=== PATIENT | male | born 1940 | race Caucasian/White ===

== ENCOUNTER 2022-12-13 08:01 | Outpatient (AMB) | payer MEDICARE, SELFPAY ==
--- NOTE | 2022-12-13 08:03 | A.OFFVIS_ITS ---
Intake Vital Signs 12/13/22 08:06 Height 6 ft Weight 185 lb 2 oz BMI 25.1 BP 118/68 Blood Pressure Location Lt brachial Position Sitting Respiration 16 Pulse 72 Pulse Source Palpation Intake Visit Reasons: VUF-Yulcsxels-Oqqnsvfid Intake Note: Pt presents to the office for new patient evaluation of Parkinson's. He reports right hand tremors, short term memory loss that has been getting worse for about a year now. Allergies No Known Allergies Allergy (Verified 12/13/22 08:11) Medication List - Last Reconciled 12/13/22 by Char Romano MD acetaminophen (Tylenol) 325 mg PO QID PRN apixaban (Eliquis) 5 mg PO BID atorvastatin 20 mg PO DAILY diltiazem HCl ER 60 mg PO BID ferrous sulfate 110 mg PO DAILY omeprazole 20 mg PO QDAY tamsulosin 0.4 mg PO DAILY tramadol 50 mg PO BEDTIME HPI HPI Comments History of Present Illness Details 82y/o right handed male comes for manage ment of Parkinsonism . His main complaints are right hand tremors , short term memory issues, generalized slowness, fatigue etc. His noticed noticed rest tremors in his right hand about 1 year ago. He has been having a progressive difficulty with dates, names , needs reminders, frequently misplaces things, forgets conversations etc for past 2 years . He has h/o sleep apnea but not on CPAP. He has nocturia - wakes up 3-4 times a night due to prostrate issues. No abnormal behavior. He has anxiety when he forgets. He was recently in the hospital for kidney stones and sepsis related to that - he was very weak and was in rehab , had COVID and was recently discharged 3 week s ago. No change in voice , no drooling.He has trouble writing.No difficulty with dressing , showering - mild slowness. He uses a walker and is off balance and had multiple falls .He has on and off li ghtheadedness especially with position change. No hallucinations No constipation. No h/o head injury No exposure to pesticides, insecticides. He has h/o vertigo for 2 years.It resolves with vestibular rehab . [facility] Medical History (Updated 12/13/22 @ 14:49 by Char Romano MD) Parkinson's disease without dyskinesia Anxiety Adenocarcinoma, lung Surgical History (Updated 10/17/23 @ 08:46 by Char Romano MD) History of pneumonectomy Hx of thyroidectomy Hx of rotator cuff surgery History of total knee replacement (TKR) H/O lithotripsy H/O arthroscopic knee surgery History of vocal cord polypectomy Family History Mother Bladder cancer Brain tumor Sister Lung cancer Physical Exam Vital Signs: Last Vital Signs Pulse 72 12/13/22 08:06 Resp 16 12/13/22 08:06 BP 118/68 12/13/22 08:06 BMI result Body Mass Index 25.1 Const General: cooperative, healthy appearing, comfortable and no acute distress Nutritional Appearance: average body habitus Orientation/consciousness: patient oriented x3 Neuro Other: right UE intermittent rest tremors Mild decreased blink and facial expression FFM mildly decreased maria g Foot taps decreased maria g Mild cog wheel rigidity R>L Gait-with walker , mild wide based , slow. General: patient oriented x3 Orientation What is the (year) (season) (date) (day) (month)?: year, season, day and month Where are we (state) (county) (town or city) (hospital) (floor)?: state, county, town or city, hospital/clinic and floor Registration Name of 3 unrelated objects clearly and slowly, then ask patient to repeat all 3 of them. (1st repeat determines score. Make sure they can repeat all three): object 1, object 2 and object 3 Attention & Calculation (CHOOSE ONE) Spell WORLD backwards (DLROW): 5 letters Recall Ask patient to repeat the 3 items from question #3.: object 1, object 2 and object 3 Language Show patient a wristwatch & ask what it is. Repeat for pencil.: watch and pencil Ask the patient to repeat the phrase 'No ifs, ands, or buts' after you.: correct Ask the patient to 'take a piece of paper with their right hand' 'fold paper in half' 'place paper on floor': take paper in right hand, fold paper in half and place paper on floor Print the sentence 'CLOSE YOUR EYES' on a piece. If patient actually closes eyes then score.: followed written direction Give patient a blank piece of paper & ask to write a sentence. Score if it contains a noun & verb.: sentence contains subject and verb Ask patient to copy figure of intersecting pentagons exactly. Score if all 10 angles & 2 intersects are included.: all 10 angles present & 2 are intersected Score Score: 29 Assessment & Plan Assessment & Plan (1) Parkinson's disease without dyskinesia: Code(s): G20.A1 - Parkinson's disease without dyskinesia, without mention of fluctuations Plan He has home therapy now. I discussed about the diagnosis and various medication options I will hold off on medications as his symptoms are mild I will reevaluate in 4 mths and consider pharmacological treatment. ADILENE from 05/2022 c/w parkinsons. Coding Level of Care Code New Pt Level 4 (99067) Diagnoses Parkinson's disease without dyskinesia G20.A1
[2022-12-13 08:06] VITALS: BP 118/68; PULSE 72; RESP 16; BMI 25.1
--- NOTE | 2022-12-14 10:18 | MHC.OFFVIS ---
Intake Vital Signs 12/13/22 08:06 12/14/22 10:18 Height 6 ft Weight 185 lb 2 oz BMI 25.1 25.1 BP 118/68 Blood Pressure Location Lt brachial Position Sitting Respiration 16 Pulse 72 Pulse Source Palpation Intake Visit Reasons: [id number] Allergies No Known Allergies Allergy (Verified 12/13/22 08:11) Medication List - Last Reconciled 12/13/22 by Char Romano MD acetaminophen (Tylenol) 325 mg PO QID PRN apixaban (Eliquis) 5 mg PO BID atorvastatin 20 mg PO DAILY diltiazem HCl ER 60 mg PO BID ferrous sulfate 110 mg PO DAILY omeprazole 20 mg PO QDAY tamsulosin 0.4 mg PO DAILY tramadol 50 mg PO BEDTIME PFSH Medical History (Updated 12/13/22 @ 14:49 by Char Romano MD) Parkinson's disease without dyskinesia Anxiety Adenocarcinoma, lung Surgical History (Updated 12/13/22 @ 08:46 by Char Romano MD) History of pneumonectomy Hx of thyroidectomy Hx of rotator cuff surgery History of total knee replacement (TKR) H/O lithotripsy H/O arthroscopic knee surgery History of vocal cord polypectomy Family History Mother Bladder cancer Brain tumor Sister Lung cancer Physical Exam Vital Signs: Last Vital Signs Pulse 72 12/13/22 08:06 Resp 16 12/13/22 08:06 BP 118/68 12/13/22 08:06 BMI result Body Mass Index 25.1 Assessment & Plan Assessment & Plan (1) Parkinson's disease without dyskinesia: Code(s): G20.A1 - Parkinson's disease without dyskinesia, without mention of fluctuations Quality Reporting (2019) Adult ([facility] 138/2/) Body Mass Index: 25.1 Coding Diagnoses Parkinson's disease without dyskinesia G20.A1
== END 2022-12-13 08:58 | disposition home or self-care (01) ==
PROVIDERS: PCP Internal Medicine; Visit Provider Psychiatry & Neurology Neurology
DX: G20.A1 Parkinson's disease without dyskinesia, without mention of fluctuations (principal)
CPT/HCPCS: 99204

== ENCOUNTER → 2022-12-13 08:01 | Outpatient (BNVA) | payer OTHER, MEDICARE, SELFPAY | PROVIDERS: PCP Internal Medicine; Visit Provider Psychiatry & Neurology Neurology ==

== ENCOUNTER 2023-04-04 12:27 | Outpatient (AMB) | payer OTHER, SELFPAY ==
--- NOTE | 2023-04-04 12:31 | A.OFFVIS_ITS ---
Intake Vital Signs 04/04/23 12:33 Height 6 ft BP 104/70 Blood Pressure Location Lt brachial Position Sitting Respiration 16 Pulse 72 Pulse Source Palpation Intake Visit Reasons: Follow up- LVM Intake Note: Pt presents for a 4 month follow up for Parkinson's without dyskinesia. Pt c/o increased tremors and falls. 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: No Allergies No Known Allergies Allergy (Verified 04/04/23 12:32) Medication List - Last Reconciled 04/04/23 by Char Romano MD acetaminophen (Tylenol) 325 mg PO QID PRN apixaban (Eliquis) 5 mg PO BID atorvastatin 20 mg PO DAILY diltiazem HCl ER 60 mg PO BID ferrous sulfate 110 mg PO DAILY finasteride 1 mg PO DAILY omeprazole 20 mg PO QDAY tamsulosin 0.4 mg PO DAILY tramadol 50 mg PO BEDTIME HPI HPI Comments History of Present Illness Details 82y/o right handed male comes for follow up of Parkinsonism .Since his last visit he has been to rehab for UTI and falls 3 times.He is very tired and he has frequent awakenings at night due to nocturia His noticed increase in his tremors and short term memory issues.He reports lightheadedness He has been having a progressive difficulty with dates, names , needs reminders, frequently misplaces things, forgets conversations etc for past 2 years . He has h/o sleep apnea but not on CPAP. He has nocturia - wakes up 3-4 times a night due to prostrate issues. No abnormal behavior. He has anxiety when he forgets. He was recently in the hospital for kidney stones and sepsis related to that - he was very weak and was in rehab , had COVID and was recently discharged 3 weeks ago. No change in voice , no drooling.He has trouble writing.No difficulty with dressing , showering - mild slowness. He uses a walker and is off balance and had multiple falls .He has on and off lightheadedness especially with position change. No hallucinations No constipation. No h/o head injury No exposure to pesticides, insecticides. He has h/o vertigo for 2 years.It resolves with vestibular rehab . [facility] LICENSE OF [facility] Medical History Parkinson's disease without dyskinesia Anxiety Adenocarcinoma, lung Surgical History History of pneumonectomy Hx of thyroidectomy Hx of rotator cuff surgery History of total knee replacement (TKR) H/O lithotripsy H/O arthroscopic knee surgery History of vocal cord polypectomy Family History Mother Bladder cancer Brain tumor Sister Lung cancer Physical Exam Vital Signs: Last Vital Signs Pulse 72 04/04/23 12:33 Resp 16 04/04/23 12:33 BP 104/70 04/04/23 12:33 Const General: cooperative, healthy appearing, comfortable and no acute distress Nutritional Appearance: average body habitus Orientation/consciousness: patient oriented x3 Neuro Other: right UE intermittent rest tremors Mild decreased blink and facial expression FFM mildly decreased maria g Foot taps decreased maria g Mild cog wheel rigidity R>L Gait-with walker , mild wide based , slow. General: patient oriented x3 Assessment & Plan Assessment & Plan (1) Parkinson's disease without dyskinesia: Code(s): G20.A1 - Parkinson's disease without dyskinesia, without mention of fluctuations Plan He has home therapy now. I will trial him on carbidopa/levodopa 25/100 - 1/2 tab tid for 4 weeks then 1tabs tid ADILENE from 05/2022 c/w parkinsons. Increase fluid intake Medications: New carbidopa-levodopa 25-100 mg 1/2 tab tid for 4 weeks then 1 tab tid orally 3 times a day; 90 tabs 1RF Coding Level of Care Code Est Pt Level 4 (86310) Diagnoses Parkinson's disease without dyskinesia G20.A1
[2023-04-04 12:33] VITALS: BP 104/70; PULSE 72; RESP 16
== END 2023-04-04 12:59 | disposition home or self-care (01) ==
PROVIDERS: PCP Internal Medicine; Visit Provider Psychiatry & Neurology Neurology
DX: G20.A1 Parkinson's disease without dyskinesia, without mention of fluctuations (principal)
CPT/HCPCS: 99214

== ENCOUNTER → 2023-04-04 12:27 | Outpatient (BNVA) | payer OTHER, MEDICARE, SELFPAY | PROVIDERS: PCP Internal Medicine; Visit Provider Psychiatry & Neurology Neurology ==

== ENCOUNTER 2023-05-23 10:19 | Outpatient (AMB) | payer OTHER, SELFPAY ==
--- NOTE | 2023-05-23 10:39 | A.OFFVIS_ITS ---
Vital Signs 05/23/23 10:50 Height 6 ft Weight 199 lb BMI 27.0 BP 112/74 Blood Pressure Location Lt brachial Position Sitting Respiration 16 Pulse 68 Pulse Source Pulse Oximeter Pulse Oximetry (%) 98 Oxygen Delivery Method Room Air Intake Visit Reasons: 6 Wks f/u - LVM w/adress Intake Note: Patient presents for 6 month F/U. Body is more rigid. Taking 1/2 tablet of Carbidopa/Levodopa at night due to getting nausea and dizziness when taking 3 1/2 tablets a day. Allergies No Known Allergies Allergy (Verified 05/23/23 10:49) HPI Comments Details: 82 y/o right handed male comes for follow up of Parkinsonism. Pt's reports that he tried Sinemet 0.5 mg TID. However, Sinemet makes him very tired and light headedness, and decreased his appetite. He uses a walker and is off balance and had multiple falls. He has on and off lightheadedness especially with position change. No hallucinations No constipation. He uses walker, and does home physical therapy. No difficulty with dressing , showering - mild slowness. He has been having a progressive difficulty with dates, names , needs reminders, frequently misplaces things, forgets conversations etc for past 2 years. He has h/o sleep apnea but not on CPAP. He has nocturia - wakes up 3-4 times a night due to prostrate issues. He does not want to repeat sleep study or using CPAP. No abnormal behavior. He has anxiety when he forgets. He has h/o vertigo for 2 years. It resolves with vestibular rehab . [facility] Medical History Parkinson's disease without dyskinesia Anxiety Adenocarcinoma, lung Surgical History History of pneumonectomy Hx of thyroidectomy Hx of rotator cuff surgery History of total knee replacement (TKR) H/O lithotripsy H/O arthroscopic knee surgery History of vocal cord polypectomy Family History Mother Bladder cancer Brain tumor Sister Lung cancer Social History (Updated 05/23/23 @ 10:50 by Taylor Hoyt CMA) Household Members: Spouse Housing: House Alcohol intake: current Comment: Ocassionally Patient Tobacco Use Status: Former Tobacco user Tobacco use type: Cigarette Years Smoked: 30 Review of Systems Const All systems reviewed & are unremarkable except as noted in HPI and below Physical Exam Vital Signs: Last Vital Signs Pulse 68 05/23/23 10:50 Resp 16 05/23/23 10:50 BP 112/74 05/23/23 10:50 Pulse Ox 98 05/23/23 10:50 Oxygen Delivery Method Room Air 05/23/23 10:50 BMI result Body Mass Index 27.0 Const General: cooperative, healthy appearing, comfortable and no acute distress Nutritional Appearance: average body habitus Orientation/consciousness: patient oriented x3 Neuro Other: right UE intermittent rest tremors Mild decreased blink and facial expression FFM mildly decreased maria g Foot taps decreased maria g Mild cog wheel rigidity R>L Gait-with walker , mild wide based , slow. General: patient oriented x3 Assessment & Plan Assessment & Plan (1) Parkinson's disease without dyskinesia: Code(s): G20.A1 - Parkinson's disease without dyskinesia, without mention of fluctuations Category: Medical Plan Advised patient to start rasagiline 0.5 mg daily. Discontinue Sinemet 0.5 tab TID, pt not tolerated. Advised patient to increase fluid intake. Medications: New rasagiline 0.5 mg PO DAILY 30 tabs 1RF 30 days Discontinued carbidopa-levodopa 25-100 mg Discontinued Reason: Doctor's Order 1/2 tab tid for 4 weeks then 1 tab tid orally 3 times a day; 90 tabs 1RF Coding Level of Care Code Est Pt Level 3 (12505) Diagnoses Parkinson's disease without dyskinesia G20.A1
[2023-05-23 10:50] VITALS: BP 112/74; PULSE 68; RESP 16; O2SAT 98; BMI 27.0
== END 2023-05-23 11:11 | disposition home or self-care (01) ==
PROVIDERS: PCP Internal Medicine; Visit Provider Nurse Practitioner Family
DX: G20.A1 Parkinson's disease without dyskinesia, without mention of fluctuations (principal)
CPT/HCPCS: 99213

== ENCOUNTER → 2023-05-23 10:19 | Outpatient (BNVA) | payer OTHER, MEDICARE, SELFPAY | PROVIDERS: PCP Internal Medicine; Visit Provider Nurse Practitioner Family ==

== ENCOUNTER 2023-09-21 12:04 | Outpatient (AMB) | payer OTHER, SELFPAY ==
--- NOTE | 2023-09-21 12:04 | A.OFFVIS_ITS ---
Intake Visit Reasons: Follow Up Intake Note: Pt presents for 4 month via telehealth for Parkinson's. 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 He is currently on rytary 23/75 1 cap tid He is tolerating is better and feels it is helping. With Sinemet made him very tired and light headedness, No falls No hallucinations No constipation. He uses walker, No difficulty with dressing , showering - mild slowness. He has been having a progressive difficulty with dates, names , needs reminders, frequently misplaces things, forgets conversations etc for past 2 years. He has h/o sleep apnea but not on CPAP. He has nocturia - wakes up 3-4 times a night due to prostrate issues. He does not want to repeat sleep study or using CPAP. No abnormal behavior. He has anxiety when he forgets. He has h/o vertigo for 2 years. It resolves with vestibular rehab . [facility] Medical History Parkinson's disease without dyskinesia Anxiety Adenocarcinoma, lung Surgical History History of pneumonectomy Hx of thyroidectomy Hx of rotator cuff surgery History of total knee replacement (TKR) H/O lithotripsy H/O arthroscopic knee surgery History of vocal cord polypectomy Family History Mother Bladder cancer Brain tumor Sister Lung cancer Social History Household Members: Spouse Housing: House Alcohol intake: current Comment: Ocassionally Patient Tobacco Use Status: Former Tobacco user Tobacco use type: Cigarette Years Smoked: 30 Physical Exam Const General: cooperative and comfortable Telehealth Telehealth Telehealth Platform: Telephone Location of provider rendering services: practice address Location of patient: address on file Patient Identification confirmed using: Name, : Yes Telehealth method: voice only Patient verbally consented to treatment: Yes Patient verbally consented to billing insurance company: Yes Patient informed of any privacy concerns related to visit: Yes Minutes spent on Phone/Video with Pt.: 16 Assessment & Plan Assessment & Plan (1) Parkinson's disease without dyskinesia: Code(s): G20.A1 - Parkinson's disease without dyskinesia, without mention of fluctuations Category: Medical Plan Increase rytary 2 tabs tid PT for gait training . Advised patient to increase fluid intake. Medications: Changed From carbidopa-levodopa 23.75-95 mg ER (Rytary) 1 cap PO TID 90 caps 6RF To carbidopa-levodopa 23.75-95 mg ER (Rytary) 2 caps PO TID 180 caps 6RF Coding Level of Care Code Tele Est Pt Level 4 (45822) Diagnoses Parkinson's disease without dyskinesia G20.A1
== END 2023-09-21 13:26 | disposition home or self-care (01) ==
LOC: HO.HSMS 12:04
PROVIDERS: PCP Internal Medicine; Visit Provider Psychiatry & Neurology Neurology
DX: G20.A1 Parkinson's disease without dyskinesia, without mention of fluctuations (principal)
CPT/HCPCS: 99442

== ENCOUNTER → 2023-09-21 12:04 | Outpatient (BNVA) | payer OTHER, SELFPAY | PROVIDERS: PCP Internal Medicine; Visit Provider Psychiatry & Neurology Neurology ==

== ENCOUNTER 2023-10-18 13:32 | Outpatient (AMB) | payer OTHER, MEDICARE, SELFPAY ==
--- NOTE | 2023-10-18 13:50 | MHC.OFFVIS ---
Vital Signs 10/18/23 13:51 Height 6 ft Weight 199 lb BMI 27.0 BP 112/68 Blood Pressure Location Rt brachial Position Sitting Respiration 16 Pulse 64 Pulse Source Palpation Intake Visit Reasons: Follow up - LVM w/add Intake Note: Pt presents for 1 month follow up for Parkinson's. 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 His is concerned about his memory.His memory is worse when he is tired and sleepy. He is currently on rytary 23/75 2 cap tid He is tolerating is better and feels it is helping. With Sinemet made him very tired and light headedness, No falls No hallucinations No constipation. He uses walker, No difficulty with dressing , showering - mild slowness. He has been having a progressive difficulty with dates, names , needs reminders, frequently misplaces things, forgets conversations etc for past 2 years. He has h/o sleep apnea but not on CPAP. He has nocturia - wakes up 3-4 times a night due to prostrate issues. He does not want to repeat sleep study or using CPAP. No abnormal behavior. He has anxiety when he forgets. He has h/o vertigo for 2 years. It resolves with vestibular rehab . [facility] Medical History Parkinson's disease without dyskinesia Anxiety Adenocarcinoma, lung Surgical History History of pneumonectomy Hx of thyroidectomy Hx of rotator cuff surgery History of total knee replacement (TKR) H/O lithotripsy H/O arthroscopic knee surgery History of vocal cord polypectomy Family History Mother Bladder cancer Brain tumor Sister Lung cancer Social History Household Members: Spouse Housing: House Alcohol intake: current Comment: Ocassionally Patient Tobacco Use Status: Former Tobacco user Tobacco use type: Cigarette Years Smoked: 30 Physical Exam Vital Signs: Last Vital Signs Pulse 64 10/18/23 13:51 Resp 16 10/18/23 13:51 BP 112/68 10/18/23 13:51 BMI result Body Mass Index 27.0 Const General: cooperative, healthy appearing, comfortable and no acute distress Nutritional Appearance: average body habitus Orientation/consciousness: patient oriented x3 Neuro Other: right UE intermittent rest tremors Mild decreased blink and facial expression FFM mildly decreased maria g Foot taps decreased maria g Mild cog wheel rigidity R>L Gait-with walker , mild wide based , slow. General: patient oriented x3 Assessment & Plan Assessment & Plan (1) Parkinson's disease without dyskinesia: Code(s): G20.A1 - Parkinson's disease without dyskinesia, without mention of fluctuations Category: Medical Plan Continue rytary 3 tabs tid PT for gait training . Advised patient to increase fluid intake. Advised to increase cognitive activity . Orders: Orders PT Evaluation and Treatment Today G20.A1 - Parkinson's disease without dyskinesia, without mention of fluctuations Medications: Changed From carbidopa-levodopa 23.75-95 mg ER (Rytary) 2 caps PO TID 180 caps 6RF To carbidopa-levodopa 23.75-95 mg ER (Rytary) 3 caps PO TID 270 caps 6RF Coding Level of Care Code Est Pt Level 4 (67199) Complex EM visit Add On G2211 Diagnoses Parkinson's disease without dyskinesia G20.A1
[2023-10-18 13:51] VITALS: BP 112/68; PULSE 64; RESP 16; BMI 27.0
== END 2023-10-18 14:33 | disposition home or self-care (01) ==
PROVIDERS: PCP Internal Medicine; Visit Provider Psychiatry & Neurology Neurology
DX: G20.A1 Parkinson's disease without dyskinesia, without mention of fluctuations (principal)
CPT/HCPCS: 99214; G2211

== ENCOUNTER → 2023-10-18 13:32 | Outpatient (BNVA) | payer OTHER, MEDICARE, SELFPAY | PROVIDERS: PCP Internal Medicine; Visit Provider Psychiatry & Neurology Neurology ==

== ENCOUNTER 2024-05-01 13:44 | Outpatient (AMB) | payer OTHER, MEDICARE, SELFPAY ==
--- NOTE | 2024-05-01 13:45 | A.OFFVIS_ITS ---
Vital Signs 05/01/24 13:46 Height 6 ft Weight 215 lb BMI 29.2 BP 130/78 Blood Pressure Location Rt brachial Position Sitting Pulse 66 Pulse Source Pulse Oximeter Pulse Oximetry (%) 96 Oxygen Delivery Method Room Air Intake Visit Reasons: Follow up Intake Note: Pt presents to the office today for a follow up for Parkinson's Disease. Pt state he did not want to do PT. Allergies No Known Allergies Allergy (Verified 05/01/24 13:48) HPI Comments Details: Patient was informed and verbally consented to the use of an ambient scribe for clinic note documentation during this visit. The patient is an 83-year-old male presenting for follow-up on Parkinson's Dis ease management. The condition was last reviewed in September, with medication adherence to Rytary at the prescribed dosage. He denies participation in referrals for physical therapy but maintains a walking regimen of over half a mile twice daily. No reports of strengthening exercises or balance activities have been made. He has not experienced falls and uses a walker primarily for extended walks. No hallucinations are present, though unusual dreams have been acknowledged. Memory testing showed adequate performance, though patient-reported issues with memory retention remain. Previous attempts to use a CPAP device for sleep apnea were met with discomfort, leading to its discontinuation. The patient's independence in activities of daily living is affirmed, with suitable home modifications aiding bathing routines. Bowel habits are predominantly regular, albeit with occasional constipation and episodes of loose stools No difficulty with dressing , showering - mild slowness. He has h/o sleep apnea but not on CPAP. He has nocturia - wakes up 3-4 times a night due to prostrate issues. He does not want to repeat sleep study or using CPAP. No abnormal behavior. He has anxiety when he forgets. He has h/o vertigo for 2 years. It resolves with vestibular rehab . [facility] Medical History Parkinson's disease without dyskinesia Anxiety Adenocarcinoma, lung Surgical History History of pneumonectomy Hx of thyroidectomy Hx of rotator cuff surgery History of total knee replacement (TKR) H/O lithotripsy H/O arthroscopic knee surgery History of vocal cord polypectomy Family History Mother Bladder cancer Brain tumor Sister Lung cancer Social History Household Members: Spouse Housing: House Alcohol intake: current Comment: Ocassionally Patient Tobacco Use Status: Former Tobacco user Tobacco use type: Cigarette Years Smoked: 30 Review of Systems Const Details: - Neurological: Reports memory impairment; no hallucinations. - Gastrointestinal: Reports regular bowel movements; occasional constipation, and loose stools. - General: Denies falls. - Musculoskeletal: Denies participating in physical therapy. - Sleep: Reports strange dreams; denies significant sleep disruption. Physical Exam Vital Signs: Last Vital Signs Pulse 66 05/01/24 13:46 BP 130/78 05/01/24 13:46 Pulse Ox 96 05/01/24 13:46 Oxygen Delivery Method Room Air 05/01/24 13:46 BMI result Body Mass Index 29.2 Const General: cooperative, healthy appearing, comfortable and no acute distress Nutritional Appearance: average body habitus Orientation/consciousness: patient oriented x3 Neuro Other: right UE intermittent rest tremors Mild decreased blink and facial expression FFM mildly decreased maria g Foot taps decreased maria g Mild cog wheel rigidity R>L Gait-with walker , mild wide based , slow. General: patient oriented x3 Orientation What is the (year) (season) (date) (day) (month)?: year, season, date, day and month Where are we (state) (county) (town or city) (hospital) (floor)?: state, county, town or city, hospital/clinic and floor Registration Name of 3 unrelated objects clearly and slowly, then ask patient to repeat all 3 of them. (1st repeat determines score. Make sure they can repeat all three): object 1, object 2 and object 3 Attention & Calculation (CHOOSE ONE) Spell WORLD backwards (DLROW): 5 letters Recall Ask patient to repeat the 3 items from question #3.: object 1, object 2 and object 3 Language Show patient a wristwatch & ask what it is. Repeat for pencil.: watch and pencil Ask the patient to repeat the phrase 'No ifs, ands, or buts' after you.: correct Ask the patient to 'take a piece of paper with their right hand' 'fold paper in half' 'place paper on floor': take paper in right hand, fold paper in half and place paper on floor Print the sentence 'CLOSE YOUR EYES' on a piece. If patient actually closes eyes then score.: followed written direction Give patient a blank piece of paper & ask to write a sentence. Score if it contains a noun & verb.: sentence contains subject and verb Ask patient to copy figure of intersecting pentagons exactly. Score if all 10 angles & 2 intersects are included.: all 10 angles present & 2 are intersected Score Score: 30 Assessment & Plan Assessment & Plan (1) Parkinson's disease without dyskinesia: Code(s): G20.A1 - Parkinson's disease without dyskinesia, without mention of fluctuations Category: Medical Qualifiers: Fluctuating manifestations: without fluctuating manifestations Qualified Code(s): G20.A1 - Parkinson's disease without dyskinesia, without mention of fluctuations Plan Continue rytary 3 tabs tid Advised patient to increase fluid intake. Advised to increase cognitive activity . - Begin physical therapy for strengthening exercises and balance enhancement. - Engage in daily cognitive activities such as puzzles and card games to boost mental function. - Monitor bowel habits; incorporate dietary changes if constipation persists. - Schedule follow-up in six months or sooner if symptoms change. Orders: Orders PT Evaluation and Treatment Today G20.A1 - Parkinson's disease without dyskinesia, without mention of fluctuations Coding Level of Care Code Est Pt Level 4 (24270) Complex EM visit Add On G2211 Diagnoses Parkinson's disease without dyskinesia or fluctuating manifestations G20.A1 Fluctuating manifestations: without fluctuating manifestations
[2024-05-01 13:46] VITALS: BP 130/78; PULSE 66; O2SAT 96; BMI 29.2
--- OUTSIDE RECORDS SUMMARY | 2024-05-01 16:21 | XMS_ITS | Clinical Summary ---
Author Organization [address] [place] [address] Address [address] [place] [address] Phone Care Team Providers Care Material Cutter Name Role Phone Orlando Maldonado MD Primary Care Provider [phone] Allergies No known active allergies Medications apixaban (ELIQUIS) 5 mg tablet Take by mouth 2 times daily. Active atorvastatin (LIPITOR) 20 mg tablet Take 20 mg by mouth daily. Active carbidopa-levod opa (Rytary) 23.75-95 mg per XR capsule Take by mouth. Active cholecalciferol (VITAMIN D-3) 125 mcg (5,000 unit) capsule Take by mouth daily. Active dilTIAZem XR (DILACOR XR) 240 mg 24 hr capsule Take 1 Capsule by mouth daily. Active ferrous sulfate 325 mg (65 mg elemental iron) tablet Take 1 Tablet by mouth daily. Active fluticasone propionate (FLONASE) 50 mcg/actuation nasal spray 2 Sprays by Each Nare route daily. Active metoprolol tartrate (LOPRESSOR) 50 mg tablet Take 1 Tablet by mouth 2 times daily. 12/14/2022 Active multivitamin (MULTIPLE VITAMINS ORAL) Take by mouth daily. Active omeprazole (PRILOSEC) 20 mg tablet,delayed release (DR/EC) Take by mouth daily. Active tamsulosin (FLOMAX) 0.4 mg 24 hr capsule Take 1 Capsule by mouth daily. Active traMADoL (ULTRAM) 50 mg tablet Take 1 Tablet by mouth as needed. 10/13/2021 Active Active Problems Problem Noted Date Diagnosed Date Acute pyelonephritis 12/13/2022 Weakness 12/13/2022 Atrial fibrillation 05/07/2021 Overview (01/12/2024): Last Assessment & Plan: Patient has history of atrial fibrillation and continues on rate control strategy with diltiazem and metoprolol. Patient's blood pressure today is well-controlled with a reading of 130/66. He continues on diltiazem 240 mg once a day. He continues on Eliquis for anticoagulation given his [id number] score of 2 representing a 2.2% risk for thromboembolism. I will make no changes to his medical therapies today. His dose of Eliquis is appropriate despite his advanced age due to his weight and and normal creatinine. GERD (gastroesophageal reflux disease) Osteoarthritis 05/07/2021 Encounters Date Type Department Care Team Description 03/01/2024 Telephone [facility] [address] [place] [address] Jordin Maurice MD Scheduling Recall from Last 3 Months Medical History Medical History Date Comments Hyperlipidemia DX:Hyperlipidemi a Lung cancer (CMS/HCC) 01/2019 DX:Lung ca ncer (HCC) Thyroid cancer (CMS/HCC) 2020 DX:Thyr oid cancer (HCC) Orthostatic hypotension DX:Ortho static hypotension Fall DX:Fall Severe anemia DX:Severe anemia Family History Medical History Relation Name Comments Alcohol abuse Father Other: Bladder cancer Mother Relation Name Status Comments Father Mother Social History Tobacco Use Types Packs/Day Years Used Date Smoking Tobacco: Former Smokeless Tobacco: Never Alcohol Use Standard Drinks/Week Comments Yes 1 (1 standard drink = 0.6 oz pur e alcohol) Sex and Gender Information Value Date Recorded Sex Assigned at Not on file Legal Sex Male 10:23 AM EST Gender Identity Not on file Sexual Orientation Not on file Obstetrics History Last Filed Vital Signs Vital Sign Reading Time Taken Comments Blood Pressure 135/73 12/20/2023 2:23 PM EDT Sit ting L Arm Pulse 74 12/20/2023 2:23 PM EDT Temperature - - Respiratory Rate - - Oxygen Saturation - - Inhaled Oxygen Concentration - - Weight 95.7 kg (211 lb) 12/20/2023 2:23 PM EDT Height 182.9 cm (6') 12/20/2023 2:23 PM EDT Body Mass Index 28.62 12/20/2023 2:23 PM EDT Plan of Treatment Upcoming Encounters Date Type Department Care Team (Late st Contact Info) Description 07/16/2024 2:00 PM EDT Office Visit [facility] [address] [place] [address] Jordin Maurice MD [address] [place] [address] [address] [place] [address] Health Maintenance Due Date Last Done Comments DTaP,Tdap,and Td Vaccines (1 - Tdap) 1959 Cholesterol Screening (Lipid Panel) 02/03/2022 Depression Screening 02/03/2022 Falls Risk Assessment 02/03/2022 Medicare Annual Wellness Visit 02/03/2022 Social Influencers of Health Screening 02/03/2022 Hypertension/CHF/CAD Annual BMP Blood Test 01/18/2024 Zoster Vaccines Completed 12/21/2021, 10/09/2021 Pneumococcal Vaccine: 50+ Years Completed 12/22/2021, 12/21/2021 RSV Immunization Patients 60+ Years Old Completed 01/02/2023 COVID-19 Vaccine Completed 10/29/2023, 12/2021, 12/18/2020, Additional history exists Influenza Vaccine Completed 10/29/2023, , 12/14/2021, Additional history exists HIB Vaccines Aged Out No longer eligi ble based on patient's age to complete this topic HPV Vaccines Aged Out No longer eligi ble based on patient's age to complete this topic Hepatitis A Vaccines Aged Out No long er eligible based on patient's age to complete this topic Hepatitis B Vaccines Aged Out No long er eligible based on patient's age to complete this topic IPV Vaccines Aged Out No longer eligi ble based on patient's age to complete this topic MMR Vaccines Aged Out No longer eligi ble based on patient's age to complete this topic Meningococcal ACWY Vaccine Aged Out N o longer eligible based on patient's age to complete this topic Meningococcal B Vacine Aged Out No lo nger eligible based on patient's age to complete this topic RSV Immunization Patients Under 20 months Aged Out No longer eligible based on patient's age to complete this topic Varicella Vaccines Aged Out No longer eligible based on patient's age to complete this topic Insurance [employer] Advance Directives Documents on File Type Date Recorded Patient Web Merchant Expl [facility] Health Care Decision (hx) 03/16/2023 NISHI ADAMS DIRECTIVE Care Teams Material Cutter Relationship Specialty Start Date End Date Orlando Maldonado MD PCP - General Internal Medicine 08/14/18
--- OUTSIDE RECORDS SUMMARY | 2024-05-01 16:22 | XMS_ITS ---
Author Organization [facility] Address Unknown Allergies, Adverse Reactions, Alerts Substance Reaction Status Noted Date Resolved Date GLP-1 receptor agonists active 12/24/2022 Problems Problem Status Start Date End Date MALIGNANT NEOPLASM OF UPPER LOBE, LEFT BRONCHUS OR LUNG (Primary) (C34.12 - ICD-10-CM) ACTIVE 03/14/2023 MALIGNANT NEOPLASM OF UNSPEC IFIED PART OF UNSPECIFIED BRONCHUS OR LUNG (Primary) (C34.90 - ICD-10-CM) RESOLVED 12/24/2022 03/13/2023 MALIGNANT NEOPLASM OF UNSPEC IFIED PART OF UNSPECIFIED BRONCHUS OR LUNG (C34.90 - ICD-10-CM) ACTIVE 03/14/2023 URINARY TRACT INFECTION, SIT E NOT SPECIFIED (N39.0 - ICD-10-CM) RESOLVED 12/24/2022 03/13/2023 ACQUIRED ABSENCE OF LUNG [PART OF] (Z90.2 - ICD-10-CM) ACTIVE 03/14/2023 MALIGNANT NEOPLASM OF THYROID GLAND (C73 - ICD-10-CM) RESOLVED 12/24/2022 03/13/2023 PARKINSONISM, UNSPECIFIED (G20.C - ICD-10-CM) ACTIVE 03/14/2023 PAIN IN OTHER SPECIFIED JOINT (M25.59 - ICD-10-CM) RES OLVED 12/25/2022 03/14/2023 UNSPECIFIED ATRIAL FIBRILLATION (I48.91 - ICD-10-CM) A CTIVE 03/14/2023 UNSPECIFIED ATRIAL FIBRILLATION (I48.91 - ICD-10-CM) R ESOLVED 12/24/2022 03/13/2023 MUSCLE WEAKNESS (GENERALIZED) (M62.81 - ICD-10-CM) ACT KATERYNA 03/14/2023 MUSCLE WEAKNESS (GENERALIZED) (M62.81 - ICD-10-CM) RES OLVED 12/22/2022 03/13/2023 DIFFICULTY IN WALKING, NOT E LSEWHERE CLASSIFIED (R26.2 - ICD-10-CM) ACTIVE 03/14/2023 DIFFICULTY IN WALKING, NOT E LSEWHERE CLASSIFIED (R26.2 - ICD-10-CM) RESOLVED 12/22/2022 03/13/2023 UNSTEADINESS ON FEET (R26.81 - ICD-10-CM) RESOLVED 12/22/2022 03/13/2023 NEED FOR ASSISTANCE WITH PER JESSICA CARE (Z74.1 - ICD-10-CM) RESOLVED 12/22/2022 03/13/2023 UNSTEADINESS ON FEET (R26.81 - ICD-10-CM) ACTIVE 03/20/2023 OTHER SYMPTOMS AND SIGNS INV OLVING COGNITIVE FUNCTIONS AND AWARENESS (R41.89 - ICD-10-CM) ACTIVE 03/20/2023 NEED FOR ASSISTANCE WITH PER JESSICA CARE (Z74.1 - ICD-10-CM) ACTIVE 03/20/2023 BENIGN PROSTATIC HYPERPLASIA WITHOUT LOWER URINARY TRACT SYMPTOMS (N40.0 - ICD-10-CM) ACTIVE 03/14/2023 IRON DEFICIENCY ANEMIA, UNSP ECIFIED (D50.9 - ICD-10-CM) ACTIVE 03/14/2023 URINARY TRACT INFECTION, SIT E NOT SPECIFIED (N39.0 - ICD-10-CM) ACTIVE 03/14/2023 WEAKNESS (R53.1 - ICD-10-CM) ACTIVE 03/14/2023 PAROXYSMAL ATRIAL FIBRILLATION (I48.0 - ICD-10-CM) ACT KATERYNA 03/14/2023 HYPERLIPIDEMIA, UNSPECIFIED (E78.5 - ICD-10-CM) ACTIVE 03/14/2023 GASTRO-ESOPHAGEAL REFLUX DIS EASE WITHOUT ESOPHAGITIS (K21.9 - ICD-10-CM) ACTIVE 03/14/2023 ESSENTIAL (PRIMARY) HYPERTENSION (I10 - ICD-10-CM) ACT KATERYNA 03/14/2023 ACUTE CYSTITIS WITHOUT HEMATURIA (N30.00 - ICD-10-CM) RESOLVED 12/24/2022 03/13/2023 OTHER THROMBOPHILIA (D68.69 - ICD-10-CM) RESOLVED 12/24/2022 03/13/2023 ORTHOSTATIC HYPOTENSION (I95.1 - ICD-10-CM) RESOLVED 12/24/2022 03/13/2023 ANEMIA DUE TO OTHER DISORDER S OF GLUTATHIONE METABOLISM (D55.1 - ICD-10-CM) RESOLVED 12/24/2022 BENIGN PROSTATIC HYPERPLASIA WITH LOWER URINARY TRACT SYMPTOMS (N40.1 - ICD-10-CM) RESOLVED 12/24/2022 03/13/2023 WEAKNESS (R53.1 - ICD-10-CM) RESOLVED 12/24/2022 03/13/2023 HYPERLIPIDEMIA, UNSPECIFIED (E78.5 - ICD-10-CM) RESOLV ED 12/24/2022 03/13/2023 Encounters Encounter Performer Performer Role Encounter Diagnoses Location Date Discharge - Discharged to home or self care - Home (Agency Unknown) - Private home/apt. with home health services [facility] 12/24/2022 12:57 pm EDT - 01/17/2023 12:55 pm EST Discharge - Discharged to home or self care - [facility] - Private home/apt. with home health services [facility] 03/14/2023 06:56 pm EST - 03/31/2023 01:25 pm EST Immunizations Vaccine Date Influenza 11/29/2022 12:00 am EDT TB 1 Step [place]oux (PPD) 12/25/2022 01:00 am EDT TB 2 Step [place]oux Skin Test 01/02/2023 1 0:00 pm EST SARS-COV-2 (COVID-19) 04/27/2020 12:00 a m EST SARS-COV-2 (COVID-19) 03/30/2020 12:00 a m EST SARS-COV-2 (COVID-19 BOOSTER) 10/07/2021 12:00 am EDT SARS-COV-2 (COVID-19 BOOSTER) 12/18/2020 12:00 am EDT Social History
--- OUTSIDE RECORDS SUMMARY | 2024-05-01 16:22 | XMS_ITS | Clinical Summary ---
Author Organization [facility] Address [address] [place] [address] Care Team Providers Care Tsa Screener Name Role Phone Orlando Maldonado MD Primary Care Provider [phone] Allergies No known active allergies Medications Medication Sig Dispensed Refills Start Date End Date Status OMEPRAZOLE PO Take by mouth. 0 Active AMLODIPINE BESYLATE PO Take by mouth. 0 Active metoprolol tartrate (LOPRESSOR) 50 MG tablet Take by mouth 2 (two) times a day. 0 Active apixaban (ELIQUIS) 5 MG TABS tablet Take by mouth every 12 (twelve) hours. 0 Active gabapentin (NEURONTIN) 300 MG capsule Take 300 mg by mouth 3 (three) times a day. 0 Active fluticasone (FLONASE) 50 MCG/ACT nasal spray spray/apply 1 spray in each nostril daily. 0 Active atorvastatin (LIPITOR) tablet 10 mg Take 10 mg by mouth every evening. 0 Active dilTIAZem HCl Coated Beads (DILTIAZEM CD PO) Take by mouth. 0 Active Active Problems No known active problems Family History Medical History Relation Name Comments Lung cancer Sister Relation Name Status Comments Sister Social History Tobacco Use Types Packs/Day Years Used Date Smoking Tobacco: Former Cigarettes 2 0 04/15/1957 - 04/15/1979 Smokeless Tobacco: Never Comments:QUIT IN 1979 Alcohol Use Standard Drinks/Week Comments Yes 0 (1 standard drink = 0.6 oz pur e alcohol) OCCASSIONALLY Sex and Gender Information Value Date Recorded Sex Assigned at Not on file Gender Identity Not on file Sexual Orientation Not on file Last Filed Vital Signs Vital Sign Reading Time Taken Comments Blood Pressure 134/86 04/15/2019 9:06 AM EST Pulse 92 04/15/2019 9:06 AM EST Temperature 36.8 ??C (98.3 ??F) 04/15/2019 9:06 AM ES T Respiratory Rate - - Oxygen Saturation - - Inhaled Oxygen Concentration - - Weight 94.6 kg (208 lb 8 oz) 04/15/2019 9:06 AM EST Height 185.4 cm (6' 1 ) 04/15/2019 9:06 AM EST Body Mass Index 27.51 04/15/2019 9:06 AM EST Plan of Treatment Health Maintenance Due Date Last Done Comments COVID-19 Vaccine (#1) 01/13/1941 Depression Screening 1954 Preventative Health Evaluation 1960 DTap / Tdap / Td (1 - Tdap) 1961 Shingrix-Zoster Vaccine (1 of 2) 1992 Fall Risk Assessment 07/14/2007 Pneumococcal Vaccine (1 of 1 - PCV) 07/14/2007 RSV Adult > 60+ Yrs or Pregn ant (1 - 1-dose 75+ series) 2017 Influenza Vaccine (#1) 2023 Hepatitis B Vaccines Aged Out No long er eligible based on patient's age to complete this topic RSV Ped < 20 months Aged Out No longe r eligible based on patient's age to complete this topic Care Teams Tsa Screener Relationship Specialty Start Date End Date Orlando Maldonado MD [address] [place] [address], [place] [address] PCP - General Internal Medicine 03/11/19
--- OUTSIDE RECORDS SUMMARY | 2024-05-01 16:22 | XMS_ITS | Data Portability ---
Author Organization [facility], PAIN OFFICE [address] [address] Care Team Providers Care Pin Inserter Regulator Name Role Phone BATSHEVA ARCHER Primary Care Provider Assessment Encounter Date Assessment Date Assessment LastModified by Organization Details LastModified Time 12/23/2019 12/23/2019 Vidal Vale is a 78 year old man with low back pain radiating into left lower extremity . This is a follow up . He has persistent left sided low back pain. MRI Lumbar spine shows Spondylotic and degenerative disc changes of the lumbar spine are present . Left Lumbar facet joint steroid injections under fluoroscopic guidance was recommended. The risks and benefits of the procedure were discussed in detail. He wishes to proceed. An appointment has been booked for the same. 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 He is on Eliquis and needs to stop Eliquis for three days for the procedure. He is ok to stop Eliquis for the procedure per Dr. Maurice, His resource center teacher. [email or web address] Not available 12/23/2019 14:03:45 01/15/2020 01/15/2020 Vidal Vale is a 78 year old man with low back pain radiating into left lower extremity . This is a follow up . He has persistent left sided low back pain. MRI Lumbar spine shows Spondylotic and degenerative disc changes of the lumbar spine are present . He is here for a left Lumbar facet joint steroid injections under fluoroscopic guidance . The risks and benefits of the procedure were discussed in detail. He wishes to proceed. He is on Eliquis and can restart his eliquis tomorrow. He can follow up in four weeks. [email or web address] Not available 01/15/2020 14:32:34 05/26/2020 05/26/2020 Viadl Vale is a 79 year old man with low back pain radiating into left lower extremity .He has persistent right sided low back pain. MRI Lumbar spine shows Spondylotic and degenerative disc changes of the lumbar spine are present . He is here for a Right Lumbar facet joint steroid injections under fluoroscopic guidance . The risks and benefits of the procedure were discussed in detail. He wishes to proceed. He is on Eliquis and can restart his eliquis tomorrow. He can follow up in four weeks. [email or web address] Not available 05/26/2020 16:12:28 09/15/2020 09/15/2020 Vidal Vale is a 78 year old man with low back pain radiating into left lower extremity . This is a follow up . He has persistent left sided low back pain. MRI Lumbar spine shows Spondylotic and degenerative disc changes of the lumbar spine are present . Left Lumbar facet joint steroid injections under fluoroscopic guidance was recommended. The risks and benefits of the procedure were discussed in detail. He wishes to proceed. An appointment has been booked for the same. 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 He is on Eliquis and needs to stop Eliquis for three days for the procedure. He is ok to stop Eliquis for the procedure per Dr. Maurice, His resource center teacher. [email or web address] Not available 09/15/2020 13:45:52 09/30/2020 09/30/2020 Vidal Vale is a 80 year old man with low back pain radiating into left lower extremity . This is a follow up . He has persistent left sided low back pain. MRI Lumbar spine shows Spondylotic and degenerative disc changes of the lumbar spine are present . He is here for a left Lumbar facet joint steroid injections under fluoroscopic guidance . The risks and benefits of the procedure were discussed in detail. He wishes to proceed. He is on Eliquis and can restart his eliquis tomorrow. He can follow up in four weeks. [email or web address] Not available 09/30/2020 10:56:07 Plan of Treatment Reminders Order Date Submit Date Provider Last Modified By Organization Details Last Modified Time Details Appointments None record ed. Lab None record ed. Referral None record ed. Procedures None record ed. Surgeries None record ed. Imaging None record ed. Medication Orders None record ed. Patient TargetsNo targets recorded. Patient Instructions Encounter Date Encounter Id Patient Instructions Last Modified By Organization Details Last Modified Time 12/23/2019 [id number] Telehealth visit: The patient was located at home for this telephone electronic visit and gave consent for this visit to be conducted via telehealth. 15 minutes was spent on this call and greater than 50% of the visit was spent on counseling and coordination of care. [email or web address] Not available 12/23/2019 14:03:02 09/15/2020 [id number] He was advised against bed rest lasting longer than four days and to continue activities as tolerated. [email or web address] Not available 09/15/2020 13:46:13 09/30/2020 [id number] He was advised against bed rest lasting longer than four days and to continue activities as tolerated. [email or web address] Not available 09/30/2020 10:56:16 Reason for Referral None Reported. Problems Name Problem SNOMED Code Status Onset Date Resolution Date Notes Provider Name and Address Organization Details Recorded Time Degeneration of lumbar intervertebral disc [id number] Lelo wallace MD [address] [facility] , [address], [facility] [place], [address], [place] [facility] 9 09:57:02 Lumbosacral radiculopathy [id number] Lelo wallace MD [address] [facility] , [address], [facility] [place], [address], [place] [facility] 9 09:57:17 Spinal stenosis of lumbar region 16805008 Lelo wallace MD [address] [facility] , [address], [facility] [place], [address], [place] [facility] 9 09:57:27 Lumbosacral spondylosis without myelopathy [id number] Lelo wallace MD [address] [facility] , [address], [facility] [place], [address], [place] [facility] 9 09:57:54 Scoliosis of lumbar spine [id number] Lelo wallace MD [address] [facility] , [address], [facility] [place], [address], [place] [facility] 9 11:14:07 Problem Notes None recorded. Procedures Surgical History Date Name Laterality Status Provider Name and Address Organization Details Recorded Time 10/01/19 21 Fluoroscopic Guided Lumbar Facet Steroid Injections of levels completed Piper Ramirez MD [address] , [address], [place], [address], [place] [facility] 09/30/2020 10:55:03 05/27/19 21 Fluoroscopic Guided Lumbar Facet Steroid Injections of levels completed Piper Ramirez MD [address] , [address], [place], [address], [place] [facility] 05/26/2020 14:30:02 01/15/20 20 Fluoroscopic Guided Lumbar Facet Steroid Injections of levels completed Piper Ramirez MD [address] , [address], [place], [address], [place] [facility] 01/15/2020 14:30:25 12/11/19 20 Lumbar Epidural steroid injection under fluoroscopic guidance completed Piper Ramirez MD [address] , [address], [place], [address], [place] [facility] 12/11/2019 11:33:33 09/11/19 20 Lumbar Epidural steroid injection under fluoroscopic guidance completed Piper Ramirez MD [address] , [address], [place], [address], [place] [facility] 09/11/2019 14:29:36 01/23/20 19 Lumbar Epidural steroid injection under fluoroscopic guidance completed Piper Ramirez MD [address] , [address], [place], [address], [place] [facility] 01/23/2019 13:24:58 10/24/19 19 Lumbar Epidural steroid injection under fluoroscopic guidance completed Piper Ramirez MD [address] , [address], [place], [address], [place] [facility] 10/24/2018 09:19:45 09/12/19 19 Lumbar Epidural steroid injection under fluoroscopic guidance completed Piper Ramirez MD [address] , [address], [place], [address], [place] [facility] 09/12/2018 15:59:08 Joint Replacement completed Racheal [place]uitron [place] - [facility] 08/24/2018 09:56:35 Other completed [place] - [facility] 08/24/2018 09:57:32 thoracoscopy completed [facility] Ramirez MD [address] [facility] , [address], [place], [address], [facility] 09/04/2019 11:29:42 Imaging Results None recorded. Procedure Notes None recorded. Medical Equipment None Reported. Allergies No known drug allergies Medications Name Sig Start Date Stop Date Status Note LastModified by Organization Details LastModified Time doxycycline hyclate 100 mg capsule 08/24 completed Not Available Not Available Not Available atorvastati n 20 mg tablet TAKE 1 TABLET BY MOUTH EVERY DAY active Not Available Not Available No t Available atorvastati n 10 mg tablet 10/11 completed Not Available Not Available Not Available metoprolol tartrate 100 mg tablet 09/03 completed Not Available Not Available Not Available metoprolol succinate ER 50 mg tablet,exte nded release 24 hr 09/03 completed Not Available Not Available Not Available hydrocodone 5 mg-acetamin ophen 325 mg tablet 05/26 completed Not Available Not Available Not Available metoprolol succinate ER 100 mg tablet,exte nded release 24 hr pt taking 1 and1/2 tabs 09/03 completed Not Available Not Available Not Available meclizine 12.5 mg tablet 09/03 completed Not Available Not Available Not Available diltiazem CD 360 mg capsule,ext ended release 24 hr TAKE 1 CAPSULE BY MOUTH EVERY DAY active Not Available Not Available No t Available amlodipine 5 mg tablet 09/03 completed Not Available Not Available Not Available tramadol 50 mg tablet TAKE 1 TO 2 TABLETS BY MOUTH AT BEDTIME NEEDED active Not Available Not Available No t Available simvastatin 40 mg tablet 08/24 completed Not Available Not Available Not Available amlodipine 10 mg tablet 08/24 completed Not Available Not Available Not Available dexamethaso ne 4 mg tablet 09/30 completed Not Available Not Available Not Available gabapentin 300 mg capsule TAKE 1 CAPSULE BY MOUTH EVERY DAY active Not Available Not Available No t Available omeprazole 20 mg capsule,del ayed release Take 1 capsule every day by oral route. active Not Available Not Available No t Available levofloxaci n 750 mg tablet 09/03 completed Not Available Not Available Not Available zolpidem 10 mg tablet 08/24 completed Not Available Not Available Not Available metoprolol tartrate 25 mg tablet 09/03 completed Not Available Not Available Not Available Eliquis 5 mg tablet TAKE 1 TABLET BY MOUTH EVERY 12 HOURS active Not Available Not Available No t Available Anoro Ellipta 62.5 mcg-25 mcg/actuati on powder for inhalation 09/03 completed Not Available Not Available Not Available Stiolto Respimat 2.5 mcg-2.5 mcg/actuati on solution for inhalation 09/03 completed Not Available Not Available Not Available Fluzone High-Dose (PF) 180 mcg/0.5 mL intramuscul ar syringe TO BE ADMINISTE RED BY PHARMACIS T FOR IMMUNIZAT ION 08/24 completed Not Available Not Available Not Available Fluzone High-Dose Quad (PF) 240 mcg/0.7 mL IM syringe PHARMACY ADMINISTE RED 05/26 completed Not Available Not Available Not Available Vitals Date Recorded Body height Body mass index (BMI) Body weight Heart rate Oxygen saturation Oxygen saturation in Arterial blood by Pulse oximetry Systolic blood pressure Diastolic blood pressure Provider Name and Address Organization Details Last Updated DateTime 0 182.88 cm 29.2 kg/m2 67494.3 6 g 97 /min 98 % 98 % 120 mm[Hg] 85 mm[Hg] Naveen wallace [place] - [facility] 0 10:38:08 Date Recorded Body height Heart rate Oxygen saturation Oxygen saturation in Arterial blood by Pulse oximetry Systolic blood pressure Diastolic blood pressure Provider Name and Address Organization Details Last Updated DateTime 1 182.88 cm 79 /min 97 % 97 % 105 mm[Hg] 67 mm[Hg] Teresa Novak [place] - [facility] 1 14:02:48 Date Recorded Body height Heart rate Oxygen saturation Oxygen saturation in Arterial blood by Pulse oximetry Systolic blood pressure Diastolic blood pressure Provider Name and Address Organization Details Last Updated DateTime 1 182.88 cm 79 /min 97 % 97 % 125 mm[Hg] 58 mm[Hg] Teresa Gomezwell [place] - [facility] 1 13:25:46 Date Recorded Body height Heart rate Oxygen saturation Oxygen saturation in Arterial blood by Pulse oximetry Systolic blood pressure Diastolic blood pressure Provider Name and Address Organization Details Last Updated DateTime 1 182.88 cm 83 /min 97 % 97 % 126 mm[Hg] 83 mm[Hg] Teresa Novak [place] - [facility] 1 10:32:56 Social History Question Answer Notes LastModified by Organizat ion Details LastModified Time Tobacco Smoking Status Former Smoker Quit x 35 Racheal Huitron [place], [place] - [facility] 08/24/2018 09:55:09 What Is Your Level Of Alcohol Consumption? Occasional Information not available 08/24/2018 Are You Currently Employed? No Information not available 08/24/2018 Which Illicit Or Recreational Drugs Have You Used? No Information not available 08/24/2018 Education 4 Year College Informatio n not available 08/24/2018 What Is Your Occupation? Retired [email or web address] Information not available 08/24/2018 Live Alone Or With Others? With Others Information not available 08/24/2018 Marital Status Informatio n not available 08/24/2018 What Was The Date Of Your Most Recent Tobacco Screening? 09/12/2018 Information not available 09/19/2018 How Many Years Have You Smoked Tobacco? 10 Information not available 08/24/2018 Sex: Unknown Functional Status None recorded. Mental Status None recorded. Family History Relationship Description Onset Age of this Age Resolved Age Notes LastModified by Organization Details LastModified Time Mother Malignant neoplastic disease Bladde r Not available 08/24/2018 09:54:10 Sister Arthritis Not availab le 08/24/2018 09:54:32 Sister Malignant neoplastic disease Lung Not available 2018 09:54:50 Medical History Condition Response Headache Y Arthritis Y Kidney Stones Y GERD/Reflux Y High Cholesterol Y Cancer Y Hypertension Y Past Encounters Encounter ID Performer Location Encounter Start Date Encounter Closed Date Diagnosis/Indication Diagnosis SNOMED-CT Code Diagnosis ICD10 Code Diagnosis Note [id number] Piper Ramirez MD [facility] [address] [facility] [address] [facility] [place] [address] 08/24/2018 09:16:53 08/24/2018 11:42:12 Lumbosacral radiculopathy 1256461 M54.17 Spinal vijaya nosis of lumbar region 33288606 M48.061 Degenerati on of lumbar intervertebral disc 11278236 M51.36 Lumbosacra l spondylosis without myelopathy 17285007 M47.817 Scoliosis of lumbar spine 674528623 M41.86 [id number] Piper Ramirez MD [facility] [address] [facility] [address] [facility] [place] [address] 09/11/2018 12:48:55 09/12/2018 16:02:16 Lumbosacral radiculopathy 4077270 M54.17 Spinal vijaya nosis of lumbar region 08232931 M48.061 Degenerati on of lumbar intervertebral disc 05741465 M51.36 Lumbosacra l spondylosis without myelopathy 20991554 M47.817 Scoliosis of lumbar spine 378955890 M41.86 [id number] Piper Ramirez MD [facility] [address] [place] [address] 10/11/2018 12:54:29 10/11/2018 13:56:51 Lumbosacral radiculopathy 3758914 M54.17 Spinal vijaya nosis of lumbar region 80191935 M48.061 Degenerati on of lumbar intervertebral disc 33247165 M51.36 Lumbosacra l spondylosis without myelopathy 49324430 M47.817 Scoliosis of lumbar spine 790601902 M41.86 [id number] Piper Ramirez MD [facility] [address] [facility] [address] [place] [address] 10/23/2018 13:34:53 10/24/2018 09:43:10 Lumbosacral radiculopathy 0864418 M54.17 Spinal vijaya nosis of lumbar region 15295454 M48.061 Degenerati on of lumbar intervertebral disc 15389322 M51.36 Lumbosacra l spondylosis without myelopathy 16646068 M47.817 Scoliosis of lumbar spine 698970748 M41.86 [id number] Piper Ramirez MD [facility] [address] [place] [address] 01/22/2019 13:05:12 01/23/2019 13:26:11 Lumbosacral radiculopathy 0512221 M54.17 Spinal vijaya nosis of lumbar region 51698622 M48.061 Degenerati on of lumbar intervertebral disc 60699470 M51.36 Lumbosacra l spondylosis without myelopathy 69769622 M47.817 Scoliosis of lumbar spine 158164231 M41.86 [id number] Piper Ramirez MD PAIN OFFICE [address] [place] [address] 09/04/2019 11:26:45 09/04/2019 11:49:39 Lumbosacral radiculopathy 4805710 M54.17 Spinal vijaya nosis of lumbar region 25739492 M48.061 Degenerati on of lumbar intervertebral disc 46515800 M51.36 Lumbosacra l spondylosis without myelopathy 41692275 M47.817 Scoliosis of lumbar spine 305580024 M41.86 [id number] Piper Ramirez MD [facility] [address] [place] [address] 09/11/2019 13:57:37 09/11/2019 14:32:41 Lumbosacral radiculopathy 9337260 M54.17 Spinal vijaya nosis of lumbar region 96167284 M48.061 Degenerati on of lumbar intervertebral disc 30564953 M51.36 Lumbosacra l spondylosis without myelopathy 86511081 M47.817 Scoliosis of lumbar spine 654684490 M41.86 [id number] Piper Ramirez MD [facility] [address] [place] [address] 11/20/2019 08:29:57 11/20/2019 08:45:09 Lumbosacral radiculopathy 4314469 M54.17 Spinal vijaya nosis of lumbar region 57736386 M48.061 Degenerati on of lumbar intervertebral disc 48868617 M51.36 Lumbosacra l spondylosis without myelopathy 39533162 M47.817 Scoliosis of lumbar spine 127757119 M41.86 [id number] Piper Ramirez MD PAIN OFFICE [address] [place] [address] 12/11/2019 10:18:49 12/12/2019 09:31:22 Lumbosacral radiculopathy 8253660 M54.17 Spinal vijaya nosis of lumbar region 78851052 M48.061 Degenerati on of lumbar intervertebral disc 10887850 M51.36 Lumbosacra l spondylosis without myelopathy 24423491 M47.817 Scoliosis of lumbar spine 592384152 M41.86 [id number] Piper Ramirez MD PAIN OFFICE [address] [place] [address] 12/23/2019 13:28:59 12/23/2019 14:04:27 Lumbosacral radiculopathy 7629144 M54.17 Spinal vijaya nosis of lumbar region 16215667 M48.061 Degenerati on of lumbar intervertebral disc 90775645 M51.36 Lumbosacra l spondylosis without myelopathy 60123745 M47.817 Scoliosis of lumbar spine 625251286 M41.86 [id number] Piper Ramirez MD [facility] [address] [place] [address] 01/15/2020 10:28:39 01/15/2020 14:39:03 Lumbosacral radiculopathy 5663889 M54.17 Spinal vijaya nosis of lumbar region 44658861 M48.061 Degenerati on of lumbar intervertebral disc 86149746 M51.36 Lumbosacra l spondylosis without myelopathy 23098712 M47.817 Scoliosis of lumbar spine 511942655 M41.86 [id number] Piper Ramirez MD [facility] [address] [place] [address] 05/26/2020 13:59:24 05/26/2020 16:20:17 Lumbosacral radiculopathy 7397056 M54.17 Spinal vijaya nosis of lumbar region 49679300 M48.061 Degenerati on of lumbar intervertebral disc 08309874 M51.36 Lumbosacra l spondylosis without myelopathy 23184726 M47.817 Scoliosis of lumbar spine 782580121 M41.86 [id number] Piper Ramirez MD PAIN OFFICE [address] [place] [address] 09/15/2020 13:20:50 09/15/2020 13:49:03 Lumbosacral radiculopathy 0063527 M54.17 Spinal vijaya nosis of lumbar region 38137645 M48.061 Degenerati on of lumbar intervertebral disc 86832349 M51.36 Lumbosacra l spondylosis without myelopathy 63091714 M47.817 Scoliosis of lumbar spine 855056684 M41.86 [id number] Piper Ramirez MD PAIN OFFICE [address] [place] [address] 09/30/2020 10:54:19 09/30/2020 11:00:40 Lumbosacral radiculopathy 6196871 M54.17 Spinal vijaya nosis of lumbar region 19837179 M48.061 Degenerati on of lumbar intervertebral disc 82948348 M51.36 Lumbosacra l spondylosis without myelopathy 21383321 M47.817 Scoliosis of lumbar spine 253167242 M41.86 Health Concerns Section Related Observation LastModified by Organization Detai ls LastModified Time None Recorded Concern Status LastModified by Organization Details LastModified Time None Recorded Advance Directives Directive None Recorded Payers Encounter Date Sequence Insurance Name Policy Number Policy Christianson Covered Member ID Christianson Member ID Guarantor Name 12/23/2019 1 [facility] (MEDICARE REPLACEMENT HMO) Vidal Vale [id number] Vidal Vale 01/15/2020 1 [facility] [employer] (MEDICARE REPLACEMENT HMO) Vidal Vale [id number] Vidal Vale 05/26/2020 1 [facility] [employer] (MEDICARE REPLACEMENT HMO) Vidal Vale [id number] Vidal Schultzi 09/15/2020 1 [facility] (MEDICARE REPLACEMENT HMO) Vidal Vale [id number] Vidal Schultzi 09/30/2020 1 [facility] (MEDICARE REPLACEMENT HMO) Vidal Vale [id number] Vidal Vale Notes Date Note Type Note Provider Name and Address Organization Details Recorded Time 12/23/2019 text/html This is a follow up after a lumbar epidural steroid injection under fluoroscopic guidance. He reports good pain benefit of his leg pain. He continues to have left sided low back pain. The pain is greater as soon he wakes up in the morning and becomes better after he moves around. He is also doing physical therapy and he feels some pain benefit with PT. He has no history of bladder or bowel incontinence. Piper Ramirez MD [address] [facility] , [address] [facility], [place], [address], [place] [facility] 12/24/2019 08:25:03 01/15/2020 text/html He is here for left lumbar facet joint steroid injection under fluoroscopic guidance. Piper Ramirez MD [address] [facility] , [address], [place], [address], [place] [facility] 01/15/2020 16:20:07 05/26/2020 text/html He is here for right lumbar facet joint steroid injection under fluoroscopic guidance. Piper Ramirez MD [address] [facility] , [address], [place], [address], [place] [facility] 05/27/2020 14:58:24 09/15/2020 text/html He is here for a left lumbar facet joint injection under fluoroscopic guidance. He has not stopped his eliquis for the procedure. Piper Ramirez MD [address] [facility] , [address], [place], [address], [place] [facility] 09/15/2020 14:52:02 09/30/2020 text/html He is here for left lumbar facet joint steroid injection under fluoroscopic guidance. Piper Ramirez MD [address] [facility] , [address], [place], [address], [facility] 09/30/2020 14:51:48
== END 2024-05-01 14:31 | disposition home or self-care (01) ==
PROVIDERS: PCP Internal Medicine; Visit Provider Psychiatry & Neurology Neurology
DX: G20.A1 Parkinson's disease without dyskinesia, without mention of fluctuations (principal)
CPT/HCPCS: 99214; G2211

== ENCOUNTER → 2024-05-01 13:44 | Outpatient (BNVA) | payer MEDICARE, SELFPAY | PROVIDERS: PCP Internal Medicine; Visit Provider Psychiatry & Neurology Neurology | DX: G20.A1 Parkinson's disease without dyskinesia, without mention of fluctuations (principal) ==

== ENCOUNTER 2024-09-12 12:45 | Outpatient (AMB) | payer OTHER, SELFPAY ==
--- NOTE | 2024-09-12 12:55 | MHC.OFFVIS ---
Vital Signs 09/12/24 12:56 Height 6 ft Weight 216 lb 6 oz BMI 29.3 BP 120/70 Blood Pressure Location Lt brachial Position Sitting Pulse 96 Pulse Source Pulse Oximeter Pulse Oximetry (%) 97 Oxygen Delivery Method Room Air Intake Visit Reasons: ER visit follow up Intake Note: Patient presents follow up Parkinson's. Patient stated patient had a stroke and was at [facility] and just got discharged on monday was placed on magnesium but not sure dose. Also, stated his cognitive is getting bad. Allergies No Known Allergies Allergy (Verified 09/12/24 12:59) Medication List - Last Reconciled 09/12/24 by Char Romano MD acetaminophen (Tylenol) 325 mg PO QID PRN apixaban (Eliquis) 5 mg PO BID atorvastatin 20 mg PO DAILY carbidopa-levodopa 23.75-95 mg ER (Rytary) 2 caps PO BID diltiazem HCl ER 60 mg PO BID ferrous sulfate 110 mg PO DAILY finasteride 1 mg PO DAILY melatonin mg PO omeprazole 20 mg PO QDAY tamsulosin 0.4 mg PO DAILY tramadol 50 mg PO BEDTIME HPI Comments Details: 84y/o male comes for follow up. ABout 3 weeks ago he was very confused so his called the ambulance . He was taken to [place]- was found to have left ocicpital infarct . He was in Rehab and motor symptoms have resolved . His is concerned about his cognition now. He frequently repeats , has trouble with short term memory issues His Parkinsons is the same .He is on rytary 23/ 2 caps bid History from last visit-Parkinson's Disease management. The condition was last reviewed in September, with medication adherence to Rytary at the prescribed dosage. He denies participation in referrals for physical therapy but maintains a walking regimen of over half a mile twice daily. No reports of strengthening exercises or balance activities have been made. He has not experienced falls and uses a walker primarily for extended walks. No hallucinations are present, though unusual dreams have been acknowledged. Memory testing showed adequate performance, though patient-reported issues with memory retention remain. Previous attempts to use a CPAP device for sleep apnea were met with discomfort, leading to its discontinuation. The patient's independence in activities of daily living is affirmed, with suitable home modifications aiding bathing routines. Bowel habits are predominantly regular, albeit with occasional constipation and episodes of loose stools No difficulty with dressing , showering - mild slowness. He has h/o sleep apnea but not on CPAP. He has nocturia - wakes up 3-4 times a night due to prostrate issues. He does not want to repeat sleep study or using CPAP. No abnormal behavior. He has anxiety when he forgets. He has h/o vertigo for 2 years. It resolves with vestibular rehab . [facility] Medical History (Updated 09/12/24 @ 13:23 by Char Romano MD) Stroke Parkinson's disease without dyskinesia Anxiety Adenocarcinoma, lung Surgical History History of pneumonectomy Hx of thyroidectomy Hx of rotator cuff surgery History of total knee replacement (TKR) H/O lithotripsy H/O arthroscopic knee surgery History of vocal cord polypectomy Family History Mother Bladder cancer Brain tumor Sister Lung cancer Social History Household Members: Spouse Housing: House Alcohol intake: current Comment: Ocassionally Patient Tobacco Use Status: Former Tobacco user Tobacco use type: Cigarette Years Smoked: 30 Physical Exam Vital Signs: Last Vital Signs Pulse 96 09/12/24 12:56 BP 120/70 09/12/24 12:56 Pulse Ox 97 09/12/24 12:56 Oxygen Delivery Method Room Air 09/12/24 12:56 BMI result Body Mass Index 29.3 Const General: cooperative, healthy appearing, comfortable and no acute distress Nutritional Appearance: average body habitus Orientation/consciousness: patient oriented x3 Neuro Other: right UE intermittent rest tremors Mild decreased blink and facial expression FFM mildly decreased maria g Foot taps decreased maria g Mild cog wheel rigidity R>L Gait-with walker , mild wide based , slow. General: patient oriented x3 Orientation What is the (year) (season) (date) (day) (month)?: year, season, date, day and month Where are we (state) (county) (town or city) (hospital) (floor)?: state, county, town or city, hospital/clinic and floor Registration Name of 3 unrelated objects clearly and slowly, then ask patient to repeat all 3 of them. (1st repeat determines score. Make sure they can repeat all three): object 1, object 2 and object 3 Attention & Calculation (CHOOSE ONE) Spell WORLD backwards (DLROW): 5 letters Recall Ask patient to repeat the 3 items from question #3.: object 1, object 2 and object 3 Language Show patient a wristwatch & ask what it is. Repeat for pencil.: watch and pencil Ask the patient to repeat the phrase 'No ifs, ands, or buts' after you.: correct Ask the patient to 'take a piece of paper with their right hand' 'fold paper in half' 'place paper on floor': take paper in right hand, fold paper in half and place paper on floor Print the sentence 'CLOSE YOUR EYES' on a piece. If patient actually closes eyes then score.: followed written direction Give patient a blank piece of paper & ask to write a sentence. Score if it contains a noun & verb.: sentence contains subject and verb Ask patient to copy figure of intersecting pentagons exactly. Score if all 10 angles & 2 intersects are included.: all 10 angles present & 2 are intersected Score Score: 30 Assessment & Plan Assessment & Plan (1) Parkinson's disease without dyskinesia: Code(s): G20.A1 - Parkinson's disease without dyskinesia, without mention of fluctuations Category: Medical Qualifiers: Fluctuating manifestations: without fluctuating manifestations Qualified Code(s): G20.A1 - Parkinson's disease without dyskinesia, without mention of fluctuations (2) Stroke: Comment: left occipital stroke Code(s): I63.9 - Cerebral infarction, unspecified Category: Medical Qualifiers: CVA mechanism: occlusion Laterality of affected vessel: left Precerebral and cerebral artery: posterior cerebral artery Qualified Code(s): I63.532 - Cerebral infarction due to unspecified occlusion or stenosis of left posterior cerebral artery Plan Continue rytary 2 tabs bid Continue Eliquis F/u Retina specialist Advised patient to increase fluid intake. Advised to increase cognitive activity . - Begin physical therapy for strengthening exercises and balance enhancement. - Engage in daily cognitive activities such as puzzles and card games to boost mental function. - Monitor bowel habits; incorporate dietary changes if constipation persists. - Schedule follow-up in six months or sooner if symptoms change. Medications: Changed From carbidopa-levodopa 23.75-95 mg ER (Rytary) 3 caps PO TID 270 caps 6RF To carbidopa-levodopa 23.75-95 mg ER (Rytary) 2 caps PO BID 120 caps 6RF Coding Level of Care Code Est Pt Level 4 (43008) Complex EM visit Add On G2211 Diagnoses Parkinson's disease without dyskinesia or fluctuating manifestations G20.A1 Fluctuating manifestations: without fluctuating manifestations Cerebrovascular accident (CVA) due to occlusion of left posterior cerebral artery I63.532 CVA mechanism: occlusion Laterality of affected vessel: left Precerebral and cerebral artery: posterior cerebral artery
[2024-09-12 12:56] VITALS: BP 120/70; PULSE 96; O2SAT 97; BMI 29.3
--- OUTSIDE RECORDS SUMMARY | 2024-09-12 13:11 | XMS_ITS | Clinical Summary ---
Author Organization [address] [facility] Address [address] [place] [address] Phone Care Team Providers Care Clinical Educator Name Role Phone Orlando Maldonado MD Primary Care Provider Allergies No known active allergies Medications dilTIAZem XR (DILACOR XR) 240 mg 24 hr capsule Take 1 capsule (240 mg total) by mouth 1 (one) time each day. Active fluticasone propionate (FLONASE) 50 mcg/actuation nasal spray Administer 2 sprays into each nostril 1 (one) time each day. Active multivitamin (MULTIPLE VITAMINS ORAL) Take 1 tablet by mouth 1 (one) time each day. Active omeprazole (PRILOSEC) 20 mg tablet,delayed release (DR/EC) Take 1 tablet (20 mg total) by mouth 1 (one) time each day. Active brimonidine (ALPHAGAN) 0.2 % ophthalmic solution Administer 1 drop into both eyes 2 (two) times a day. Active acetaminophen (TYLENOL) 500 mg tablet Take 2 tablets (1,000 mg total) by mouth every 8 (eight) hours. 025 2024 Active apixaban (ELIQUIS) 5 mg tabletIndications: prevent thromboembolism in chronic atrial fibrillation Take 1 tablet (5 mg total) by mouth 2 (two) times a day. 60 each 2024 Active atorvastatin (LIPITOR) 20 mg tablet Take 1 tablet (20 mg total) by mouth at bedtime. 30 each 2024 Active carbidopa-levodopa CR (SINEMET CR) 50-200 mg per CR tablet Take 1 tablet by mouth 2 (two) times a day. Do not crush or chew. 60 each 2024 Active cholecalciferol (VITAMIN D-3) 125 mcg (5,000 unit) capsule Take 1 capsule (5,000 Units total) by mouth 1 (one) time each day. 30 each 2024 Active ferrous sulfate 325 mg (65 mg elemental iron) tablet Take 1 tablet (325 mg total) by mouth 1 (one) time each day. 30 each 2024 Active metoprolol tartrate (LOPRESSOR) 50 mg tablet Take 1 tablet (50 mg total) by mouth 2 (two) times a day. 60 each 2024 Active tamsulosin (FLOMAX) 0.4 mg 24 hr capsule Take 1 capsule (0.4 mg total) by mouth 1 (one) time each day. Capsules should be taken 30 minutes following the same meal each day. 30 each 2024 Active lidocaine 4 % patch Apply 2 patches topically 1 (one) time each day. Shoulder pain 60 each 2024 Active magnesium oxide (MAG-OX) 400 mg (241.3 elemental magnesium) tablet Take 1 tablet (400 mg total) by mouth 1 (one) time each day. 30 each 2024 Active melatonin 3 mg tablet Take 1 tablet (3 mg total) by mouth at bedtime. 30 each 2024 Active apixaban (ELIQUIS) 5 mg tablet Take by mouth 2 times daily. 2024 Discontinued(S top Taking at Discharge) atorvastatin (LIPITOR) 20 mg tablet Take 1 tablet (20 mg total) by mouth at bedtime. 2024 Discontinued cholecalciferol (VITAMIN D-3) 125 mcg (5,000 unit) capsule Take 1 capsule (5,000 Units total) by mouth 1 (one) time each day. 025 2024 Discontinued ferrous sulfate 325 mg (65 mg elemental iron) tablet Take 1 tablet (325 mg total) by mouth 1 (one) time each day. 2024 Discontinued metoprolol tartrate (LOPRESSOR) 50 mg tablet Take 1 tablet (50 mg total) by mouth 2 (two) times a day. 023 2024 Discontinued tamsulosin (FLOMAX) 0.4 mg 24 hr capsule Take 1 capsule (0.4 mg total) by mouth 1 (one) time each day. 2024 Discontinued traMADoL (ULTRAM) 50 mg tablet Take 1 tablet (50 mg total) by mouth. 022 2024 Discontinued(S top Taking at Discharge) carbidopa-levodopa (Rytary) 23.75-95 mg per XR capsule Take 2 capsules by mouth 3 (three) times a day. 2024 Discontinued(S top Taking at Discharge) carbidopa-levodopa CR (SINEMET CR) 50-200 mg per CR tablet Take 1 tablet by mouth 2 (two) times a day. Do not crush or chew. 2024 Discontinued(S top Taking at Discharge) acetaminophen (TYLENOL) 325 mg tablet Take 2 tablets (650 mg total) by mouth every 4 (four) hours if needed for mild pain, headaches or fever - temperature GREATER than 38 C (100.4 F) for up to 10 days. 2024 Discontinued(S top Taking at Discharge) aspirin 81 mg EC tablet Take 1 tablet (81 mg total) by mouth 1 (one) time each day. 025 2024 Discontinued(S top Taking at Discharge) enoxaparin (LOVENOX) 40 mg/0.4 mL syringe Inject 0.4 mL (40 mg total) under the skin at bedtime. 2024 Discontinued(S top Taking at Discharge) ondansetron ODT (ZOFRAN-ODT) 4 mg disintegrating tabletIndications: Cerebrovascular accident (CVA), unspecified mechanism ([facility] V24, [facility] V28) Take 1 tablet (4 mg total) by mouth every 8 (eight) hours if needed for vomiting or nausea for up to 7 days. 025 2024 Discontinued(S top Taking at Discharge) Active Problems Problem Noted Date Diagnosed Date CVA (cerebral vascular accident) ([facility] V24, [facility] V28) 08/27/2024 Generalized weakness 08/23/2024 Stroke ([facility] V24, [facility] V28) 08/23/2024 Acute pyelonephritis 12/13/2022 Weakness 12/13/2022 Atrial fibrillation ([facility] V24, [facility] V28) 0 05/07/2021 Overview (01/12/2024): Last Assessment & Plan: Patient has history of atrial fibrillation and continues on rate control strategy with diltiazem and metoprolol. Patient's blood pressure today is well-controlled with a reading of 130/66. He continues on diltiazem 240 mg once a day. He continues on Eliquis for anticoagulation given his [id number] score of 2 representing a 2.2% risk for thromboembolism. I will make no changes to his medical therapies today. His dose of Eliquis is appropriate despite his advanced age due to his weight and and normal creatinine. Assessment & Plan (07/16/2024 4:56 PM EDT): Patient with atrial fibrillation but also significant underlying Parkinson's disease. I discussed with him the possibility of a Watchman device I offered to start the process now before he starts having falls but he says he is doing well without falls at this time I told him and his that if he develops any instability or has any falls that we should then really consider doing a Watchman procedure to diminish the risk of him having a traumatic bleed from being anticoagulated for the A-fib. On exam today he is mildly orthostatic but does not drop his systolic pressure more than 10 points. I also told him that if he develops significant lightheadedness with standing that we could also consider starting him on midodrine to try to mitigate some of the symptoms. Unfortunately he still requires a large amount of beta- preeti and calcium channel preeti to control his A-fib rate. If we develop issues with orthostasis that symptomatic we may need to back off on his AV supriya blocking therapy because of that he may become a candidate for an AV supriya ablation and permanent pacing Soft told him that they do have some future procedures that may need to be considered he may need to be considered for a Watchman device he may need to be considered for AV supriya ablation and permanent pacing if we need to stop or discontinue or decrease the beta-preeti and calcium channel preeti. That if they have any concerns about his symptoms at home they need to contact us and we can initiate these procedures if necessary. But for now no changes in therapy Orders: ECG 12 lead GERD (gastroesophageal reflux disease) 2 Osteoarthritis 05/07/2021 Encounters Date Type Department Care Team Description 09/09/2024 Plan of Care Documentation [facility] Inpatient Rehab [address] [place] [phone] 09/02/2024 Plan of Care Documentation [facility]patient [facility]hab [address] [place] [phone] 08/27/2024 7:21 PM EDT - 09/10/2024 10:55 AM EDT Hospital Encounter [facility]patient [facility] [address] [place] [phone] Gilda Munoz DO CVA (cerebral vascular accident) ([facility] V24, [facility] V28) [I63.9] (Primary Dx); Cerebrovascular accident (CVA), unspecified mechanism ([facility] V24, [facility] V28) Discharge Disposition: Home or Self Care 08/22/2024 1:52 PM EDT - 08/27/2024 7:21 PM EDT Hospital Encounter [facility] [address] [place] [phone] Fritz Kee MD Flores, Carlos M, MD Japaridze, Anna, MD Nasser, Nada S, MD General weakness (Primary Dx); Abnormal head CT; Cerebrovascular accident (CVA), unspecified mechanism ([facility] V24, [facility] V28) Discharge Disposition: [facility] Facility 07/17/2024 Telephone [facility] [address] [place] [phone] Jordin Maurice MD Medication 07/16/2024 2:00 PM EDT Office Visit [facility] [address] [facility] [address] [place] [phone] Jordin Maurice MD Atrial fibrillation, unspecified type ([facility] V24, [facility] V28) (Primary Dx) from Last 3 Months Medical History Medical History Date Comments Hyperlipidemia DX:Hyperlipidemi a Lung cancer ([facility] V24, [facility] V28) 01/2019 DX:Lung cancer (HCC) Thyroid cancer ([facility] V24, [facility] V28) 2020 DX:Thyroid cancer (HCC) Orthostatic hypotension DX:Ortho static hypotension Fall DX:Fall Severe anemia DX:Severe anemia Family History Medical History Relation Name Comments Alcohol abuse Father Other: Bladder cancer Mother Relation Name Status Comments Father Mother Social History Tobacco Use Types Packs/Day Years Used Date Smoking Tobacco: Former Cigarettes Smokeless Tobacco: Never Tobacco Cessation:Counseling Given: Not Answered Alcohol Use Standard Drinks/Week Comments Yes 0 (1 standard drink = 0.6 oz pur e alcohol) occasional beer Housing Instability Answer Date Recorde d Are you worried that in the next 2 months you may not have stable housing? No 08/23/2024 Food Access & Nutrition Answer Date Rec orded Do you have access to a vari ety of food including fruits and vegetables? Yes 08/23/2024 Access to Healthcare Answer Date Record ed Within the last 3 months, ho w many times did you visit the emergency department for your medical care? 0 08/23/2024 Health Literacy Answer Date Recorded How often do you need to hav e someone help you when you read instructions, pamphlets, or other written material from your doctor or pharmacy? Sometimes 09/09/2024 Caregiver: How often do you need to have someone help you when you read instructions, pamphlets, or other written material from your doctor or pharmacy? Not on file 09/09/2024 Financial Risk Answer Date Recorded How hard is it for you to pa y for the very basics like food, housing, medical care, and air conditioning / heating? Not very hard 08/23/2024 Transportation Answer Date Recorded Has the lack of transportati on kept you from meetings, work, or from getting things needed for daily living? No Has the lack of transportati on kept you from medical appointments or from getting medications? No 08/28/2024 Social Isolation Answer Date Recorded How often do you feel lonely or isolated from th ose around you? Rarely 09/10/2024 Food Risk Answer Date Recorded Within the past 12 months we worried whether our food would run out before we got money to buy more. Never true 09/04/2024 Within the past 12 months th e food we bought just didn't last and we didn't have money to get more. Never true 09/04/2024 Dependent Care Answer Date Recorded Do you need help finding or paying for care for your loved ones. For example, child care aide or elderly care for an older adult? No 08/23/2024 Education Answer Date Recorded Do you think completing more education or training, like finishing a GED, going to college, or learning a trade, would be helpful for you? No 08/23/2024 Employment and Income Answer Date Recor ded During the last four weeks, have you been actively looking for work? No 08/23/2024 Living Situation Answer Date Recorded What is your living situation? 0 08/23/2024 Interpersonal Safety Answer Date Record ed Physical Abuse 08/27/2024 Verbal Abuse 08/27/2024 Sex and Gender Information Value Date Recorded Sex Assigned at Not on file Legal Sex Male 10:23 AM EST Gender Identity Male 08/26/2024 3:11 PM EDT Sexual Orientation Straight 08/23/2024 2: 59 PM EDT Obstetrics History Last Filed Vital Signs Vital Sign Reading Time Taken Comments Blood Pressure 127/90 09/10/2024 7:39 AM EDT Pulse 76 09/10/2024 7:39 AM EDT Temperature 36.2 C (97.2 F) 09/10/2024 12:12 AM EDT Respiratory Rate 18 09/10/2024 12:1 2 AM EDT Oxygen Saturation 98% 09/10/2024 7:39 AM EDT Inhaled Oxygen Concentration - - Weight 91.1 kg (200 lb 12.8 oz) 09/08/2024 8:45 AM EDT Height 182.9 cm (6' 0.01 ) 08/23/2024 2:50 PM ED T Body Mass Index 27.23 08/23/2024 2:50 PM EDT Plan of Treatment Upcoming Encounters Date Type Department Care Team (Late st Contact Info) Description 09/23/2024 3:45 PM EDT Evaluation [facility] Speech Therapy [address] [phone] Kalpana Liao, PHOTOGRAPHIC DEVELOPER AND PRINTER 10/08/2024 11:45 AM EDT Evaluation [facility] Outpatient Rehabilitation - [place] [address] [phone] Lauryn Kee, PT Health Maintenance Due Date Last Done Comments DTaP,Tdap,and Td Vaccines (1 - Tdap) 1959 Cholesterol Screening (Lipid Panel) 02/03/2022 Medicare Annual Wellness Visit 02/03/2022 COVID-19 Vaccine (6 - Moderna risk season) 2024 10/29/2023, 10/07/2021, 12/18/2020, Additional history exists Influenza Vaccine (#1) 2024 , 11/29/2022, 12/14/2021, Additional history exists Falls Risk Assessment 09/10/2025 09/10/2024 Hypertension/CHF/CAD Annual BMP Blood Test 09/10/2025 09/10/2024, 09/06/2024, 09/05/2024, Additional history exists Social Influencers of Health Screening 09/10/2025 09/10/2024 Zoster Vaccines Completed 12/21/2021, 10/09/2021 Pneumococcal Vaccine: 50+ Years Completed 12/22/2021, 12/21/2021 RSV Immunization Adult Patients Completed 01/02/2023 Depression Screening Completed 09/10/2024 HIB Vaccines Aged Out No longer eligi [...] age to complete this topic Meningococcal B Vaccine Aged Out No l onger eligible based on patient's age to complete this topic RSV Immunization Patients Under 20 months Aged Out No longer eligible based on patient's age to complete this topic Varicella Vaccines Aged Out No longer eligible based on patient's age to complete this topic Procedures Procedure Name Priority Date/Time Associated Diagnosis Comments MAGNESIUM Routine 09/10/2024 5:57 AM EDT COMPLETE BLOOD COUNT Routine 09/10/2024 5:57 AM EDT COMPREHENSIVE METABOLIC PANEL Routine 09/10/2024 5:57 AM EDT MAGNESIUM Routine 09/06/2024 5:24 AM EDT COMPLETE BLOOD COUNT Routine 09/06/2024 5:24 AM EDT COMPREHENSIVE METABOLIC PANEL Routine 09/06/2024 5:24 AM EDT RESPIRATORY VIRUS PANEL MOLECULAR STUDY Routine 09/05/2024 10:38 AM EDT RUSHING URINE CULTURE TUBE Routine 09/05/2024 9:30 AM EDT URINALYSIS WITH REFLEX MICROSCOPIC AND CULTURE Routine 09/05/2024 9:30 AM EDT URINALYSIS WITH REFLEX MICROSCOPIC AND CULTURE Routine 09/05/2024 9:30 AM EDT COMPLETE BLOOD COUNT Routine 09/05/2024 8:45 AM EDT COMPREHENSIVE METABOLIC PANEL Routine 09/05/2024 8:44 AM EDT MAGNESIUM Routine 09/03/2024 5:36 AM EDT BASIC METABOLIC PANEL Routine 09/03/2024 5:36 AM EDT COMPLETE BLOOD COUNT Routine 09/03/2024 5:[address] HEAD WO CONTRAST STAT 09/02/2024 1 :01 PM EDT POCT GLUCOSE BLOOD Routine 08/28/2024 10 :56 AM EDT CBC WITH AUTO DIFFERENTIAL Routine 08/28/2024 6:21 AM EDT COMPREHENSIVE METABOLIC PANEL Routine 08/28/2024 6:21 AM EDT CBC AND DIFFERENTIAL Routine 08/28/2024 6:21 AM EDT ECG ANNOTATED 08/28/2024 CBC WITH AUTO DIFFERENTIAL Routine 08/26/2024 5:32 AM EDT BASIC METABOLIC PANEL Routine 08/26/2024 5:32 AM EDT CBC AND DIFFERENTIAL Routine 08/26/2024 5:32 AM EDT MAGNESIUM Timed 08/26/2024 5:32 AM EDT CBC WITH AUTO DIFFERENTIAL Routine 08/25/2024 5:56 AM EDT MAGNESIUM Timed 08/25/2024 5:56 AM EDT CBC AND DIFFERENTIAL Routine 08/25/2024 5:56 AM EDT BASIC METABOLIC PANEL Routine 08/25/2024 5:[address] HEAD WO CONTRAST STAT 08/24/2024 9 :01 AM EDT VITAMIN B12 AND FOLATE Add-On 5:48 AM EDT CBC WITH AUTO DIFFERENTIAL Routine 08/24/2024 5:48 AM EDT MAGNESIUM Timed 08/24/2024 5:48 AM EDT CBC AND DIFFERENTIAL Routine 08/24/2024 5:48 AM EDT BASIC METABOLIC PANEL Routine 08/24/2024 5:48 AM EDT TRANSTHORACIC ECHOCARDIOGRAM (TTE) COMPLETE W/ CONTRAST Routine 08/23/2024 4:17 PM EDT Cerebrovascular accident (CVA), unspecified mechanism ([facility] V24, [facility] V28) CT ANGIO HEAD/NECK WO AND/OR W CONTRAST STAT 08/23/2024 12:21 PM EDT MR BRAIN WO AND W CONTRAST Routine 08/23/2024 9:40 AM EDT TROPONIN I HIGH SENSITIVITY STAT 08/23/2024 8:29 AM EDT CREATINE KINASE AND CKMB Add-On 08/23/2024 8:02 AM EDT THYROID STIMULATING HORMONE WITH REFLEX TO FREE T4 AND FREE T3 Add-On 08/23/2024 8:02 AM EDT TREPONEMA PALLIDUM ANTIBODY WITH REFLEX TO RPR AND PARTICLE AGGLUTINATION Add-On 08/23/2024 8:02 AM EDT BORRELIA BURGDORFERI ANTIBODY Add-On 08/23/2024 8:02 AM EDT MAGNESIUM STAT 08/23/2024 8:02 AM EDT VITAMIN B2 Routine 08/23/2024 8:02 AM EDT CBC WITH AUTO DIFFERENTIAL Routine 08/23/2024 8:02 AM EDT THYROID STIMULATING HORMONE Routine 08/23/2024 8:02 AM EDT CBC AND DIFFERENTIAL Routine 08/23/2024 8:02 AM EDT BASIC METABOLIC PANEL Routine 08/23/2024 8:[address] HEAD WO CONTRAST STAT 08/23/2024 3 :51 AM EDT CULTURE THROAT STAT 08/22/2024 10:09 PM EDT RAPID STREP A SCREEN STAT 08/22/2024 10:[address] CHEST/ABDOMEN/PELVIS W CONTRAST STAT 08/22/2024 8:07 PM EDT B-TYPE NATRIURETIC PEPTIDE STAT 08/22/2024 7:48 PM EDT XR CHEST 2 VIEWS STAT 08/22/2024 6:56 PM EDT RUSHING URINE CULTURE TUBE STAT 08/22/2024 6:23 PM EDT URINALYSIS WITH REFLEX MICROSCOPIC AND CULTURE STAT 08/22/2024 6:23 PM EDT URINALYSIS WITH REFLEX MICROSCOPIC AND CULTURE STAT 08/22/2024 6:23 PM EDT CULTURE URINE STAT 08/22/2024 6:23 PM EDT CULTURE BLOOD STAT 08/22/2024 5:22 PM EDT RESPIRATORY VIRUS PANEL MOLECULAR STUDY STAT 08/22/2024 5:18 PM EDT LACTATE, WITH REFLEX STAT 08/22/2024 5:15 PM EDT CULTURE BLOOD STAT 08/22/2024 5:15 PM EDT ECG 12-LEAD STAT 08/22/2024 4:10 PM EDT POCT GLUCOSE BLOOD Routine 08/22/2024 3: 54 PM EDT PROTHROMBIN TIME WITH INR STAT 08/22/2024 2:29 PM EDT HEMOGLOBIN A1C Add-On 08/22/2024 2:26 PM EDT SEDIMENTATION RATE Add-On 08/22/2024 2: 26 PM EDT LIPASE STAT Add-on 08/22/2024 2:26 PM EDT HEPATIC FUNCTION PANEL STAT Add-on 2:26 PM EDT CBC WITH AUTO DIFFERENTIAL STAT 08/22/2024 2:26 PM EDT MAGNESIUM STAT 08/22/2024 2:26 PM EDT BASIC METABOLIC PANEL STAT 08/22/2024 2:26 PM EDT CBC AND DIFFERENTIAL STAT 08/22/2024 2:26 PM EDT ECG 12-LEAD Routine 07/16/2024 2:24 PM EDT Atrial fibrillation, unspecified type (CMS/HCC V24, [facility] V28) from Last 3 Months Results * (ABNORMAL) Complete blood count (09/10/2024 5:57 AM EDT) Only the most recent of4 resultswithin the time period is included. WBC 8.7 4.8 - 10.8 K/mcL LAB HEMETOLOGY METHOD 09/10/2024 6:24 AM EDT [facility] RBC 3.90(L) 4.50 - 5.50 M/mcL LAB HEMETOLOGY METHOD 09/10/2024 6:24 AM EDT [facility] Hemoglobin 12.8(L) 13.5 - 17.5 g/dL LAB HEMETOLOGY METHOD 09/10/2024 6:24 AM T [facility] Hematocrit 39.8(L) 42.0 - 54.0 % LAB HEMETOLOGY METHOD 09/10/2024 6:24 AM [facility] MCV 101.0(H) 79.0 - 98.0 FL LAB HEMETOLOGY METHOD 09/10/2024 6:24 AM [facility] MCH 32.5(H) 27.0 - 32.0 pcg LAB HEMETOLOGY METHOD 09/10/2024 6:24 AM [facility] MCHC 32.2 32.0 - 37.0 g/dL LAB HEMETOLOGY METHOD 09/10/2024 6:24 AM [facility] RDW 13.6 11.0 - 15.0 % LAB HEMETOLOGY METHOD 09/10/2024 6:24 AM [facility] Platelets 248 130 - 400 K/mcL LAB HEMETOLOGY METHOD 09/10/2024 6:24 AM [facility] MPV 9.1 7.0 - 11.0 FL LAB HEMETOLOGY METHOD 09/10/2024 6:24 AM [facility] NRBC 0.0 <1.0 % LAB HEMETOLOGY METHOD 09/10/2024 6:24 AM [facility] NRBC Absolute 0.00 <0.10 K/mcL LAB HEMETOLOGY METHOD 09/10/2024 6:24 AM [facility] Blood Venous blood specimen / Unknown Venipuncture / Unknown 09/10/2024 5:57 AM EDT 09/10/2024 6:14 AM EDT Danielle Monsalve NP LAB BLOOD ORDERABLES Final Result Performing Organization Address City/[facility]/ZIP Co de Phone Number [facility] [address] [place] [address], [place] [phone] * (ABNORMAL) Magnesium (09/10/2024 5:57 AM EDT) Only the most recent of8 resultswithin the time period is included. Pathologist [facility] Magnesium 1.8(L) 1.9 - 2.6 mg/dL LAB CHEMISTRY METHOD 09/10/2024 6:58 AM EDT [facility] Blood Venous blood specimen / Unknown Venipuncture / Unknown 09/10/2024 5:57 AM EDT 09/10/2024 6:14 AM EDT Danielle Monsalve NP LAB BLOOD ORDERABLES Final Result Performing Organization Address [facility]/ZIP Co de Phone Number [facility] [address] [place] [address], [place] [phone] * Comprehensive metabolic panel (09/10/2024 5:57 AM EDT) Only the most recent of4 resultswithin the time period is included. Pathologist [facility] Sodium 140 133 - 145 mmol/L LAB CHEMISTRY METHOD 09/10/2024 6:58 AM EDT [facility] Potassium 4.1 3.5 - 5.5 mmol/L LAB CHEMISTRY METHOD 09/10/2024 6:58 AM EDT [facility] Chloride 106 96 - 110 mmol/L LAB CHEMISTRY METHOD 09/10/2024 6:58 AM EDT [facility] CO2 28 21 - 32 mmol/L LAB CHEMISTRY METHOD 09/10/2024 6:58 AM EDT [facility] Anion Gap 6 3 - 11 LAB CHEMISTRY METHOD 09/10/2024 6:58 AM EDT [facility] Glucose 93 70 - 100 mg/dL LAB CHEMISTRY METHOD 09/10/2024 6:58 AM EDT [facility] BUN 19 5 - 25 mg/dL LAB CHEMISTRY METHOD 09/10/2024 6:58 AM [facility] Creatinine 0.99 0.70 - 1.30 mg/dL LAB CHEMISTRY METHOD 09/10/2024 6:58 AM [facility] eGFR 76 >=60 mL/min/1. 73m2 LAB CHEMISTRY METHOD 09/10/2024 6:58 AM [facility] Comment:Calculation based on the Chronic Kidney Disease Epidemiology Collaboration (CKD-EPI) equation refit without adjustment for race. BUN/Creatinine Ratio 19.2 LAB CHEMISTRY METHOD 09/10/2024 6:58 AM [facility] Calcium 9.4 8.5 - 10.5 mg/dL LAB CHEMISTRY METHOD 09/10/2024 6:58 AM [facility] AST (SGOT) 15 10 - 42 unit/L LAB CHEMISTRY METHOD 09/10/2024 6:58 AM [facility] ALT (SGPT) 13 10 - 60 unit/L LAB CHEMISTRY METHOD 09/10/2024 6:58 AM [facility] Alkaline Phosphatase 74 42 - 121 unit/L LAB CHEMISTRY METHOD 09/10/2024 6:58 AM [facility] Total Protein 6.6 6.0 - 8.0 g/dL LAB CHEMISTRY METHOD 09/10/2024 6:58 AM [facility] Albumin 3.4 3.2 - 5.0 g/dL LAB CHEMISTRY METHOD 09/10/2024 6:58 AM [facility] Total Bilirubin 0.5 0.0 - 1.4 mg/dL LAB CHEMISTRY METHOD 09/10/2024 6:58 AM [facility] Blood Venous blood specimen / Unknown Venipuncture / Unknown 09/10/2024 5:57 AM EDT 09/10/2024 6:14 AM EDT Danielle Monsalve NP LAB BLOOD ORDERABLES Final Result [facility] [address] [place] [address], * Respiratory virus panel molecular study (09/05/2024 10:38 AM EDT) Only the most recent of2 resultswithin the time period is included. Adenovirus Detection by PCR Not Detected Not Detected LAB MICROBIOLOGY METHOD 09/05/2024 11:50 AM EDT [facility] Influenza A PCR Not Detected Not Detected LAB MICROBIOLOGY METHOD 09/05/2024 11:50 AM EDT [facility] Influenza B PCR Not Detected Not Detected LAB MICROBIOLOGY METHOD 09/05/2024 11:50 AM EDT [facility] [facility] Coronavirus 229E Not Detected Not Detected LAB MICROBIOLOGY METHOD 09/05/2024 11:50 AM EDT [facility] Coronavirus HKU1 Not Detected Not Detected LAB MICROBIOLOGY METHOD 09/05/2024 11:50 AM EDT [facility] Coronavirus OC43 Not Detected Not Detected LAB MICROBIOLOGY METHOD 09/05/2024 11:50 AM EDT [facility] Coronavirus NL63 Not Detected Not Detected LAB MICROBIOLOGY METHOD 09/05/2024 11:50 AM EDT [facility] Parainfluenza Virus 1 Not Detected Not Detected LAB MICROBIOLOGY METHOD 09/05/2024 11:50 AM EDT [facility] Parainfluenza Virus 2 Not Detected Not Detected LAB MICROBIOLOGY METHOD 09/05/2024 11:50 AM EDT [facility] Parainfluenza Virus 3 Not Detected Not Detected LAB MICROBIOLOGY METHOD 09/05/2024 11:50 AM EDT [facility] Parainfluenza Virus 4 Not Detected Not Detected LAB MICROBIOLOGY METHOD 09/05/2024 11:50 AM EDT [facility] RSV PCR Not Detected Not Detected LAB MICROBIOLOGY METHOD 09/05/2024 11:50 AM EDT [facility] Human Metapneumovirus A and B Not Detected Not Detected LAB MICROBIOLOGY METHOD 09/05/2024 11:50 AM EDT [facility] Rhinovirus/Entero virus Not Detected Not Detected LAB MICROBIOLOGY METHOD 09/05/2024 11:50 AM EDT [facility] Bordetella pertussis Not Detected Not Detected LAB MICROBIOLOGY METHOD 09/05/2024 11:50 AM EDT [facility] Bordetella parapertussis Not Detected Not Detected LAB MICROBIOLOGY METHOD 09/05/2024 11:50 AM EDT [facility] Mycoplasma pneumo by PCR Not Detected Not Detected LAB MICROBIOLOGY METHOD 09/05/2024 11:50 AM EDT [facility] Chlamydia pneumoniae Not Detected Not Detected LAB MICROBIOLOGY METHOD 09/05/2024 11:50 AM EDT [facility] SARS COV-2 Not Detected Not Detected LAB MICROBIOLOGY METHOD 09/05/2024 11:50 AM EDT [facility] Swab Both anterior nares / Unknown Non-blood Collection / Unknown 09/05/2024 10:38 AM EDT 09/05/2024 10:47 AM EDT [facility] - 09/05/2024 11:50 AM EDT Testing was performed using the [employer] Respiratory Pathogen PCR Assay. All results must be correlated with the clinical findings. Results should not be used as the sole basis for diagnosis. False Negative results may occur from the presence of sequence variants in the region targeted by the assay or the presence of inhibitors. Results may be affected by concurrent antiviral/antimicrobial therapy or levels of organisms that are below the limit of detection. us Tena GILL LAB MICROBIOLOGY - GENERAL O RDERABLES Final Result [facility] [address] [place] [address], [place] [phone] * Urinalysis with reflex microscopic and culture (09/05/2024 9:30 AM EDT) Only the most recent of2 resultswithin the time period is included. Specific [place] Urine 1.016 1.003 - 1.030 LAB URINALYSIS - AUTOMATED METHOD 09/05/2024 10:16 AM [facility] pH, Urine 6.5 5.0 - 8.0 pH LAB URINALYSIS - AUTOMATED METHOD 09/05/2024 10:16 AM [facility] Leukocytes, Urine Negative Negative LAB URINALYSIS - AUTOMATED METHOD 09/05/2024 10:16 AM [facility] Nitrite, Urine Negative Negative LAB URINALYSIS - AUTOMATED METHOD 09/05/2024 10:16 AM [facility] Protein, Urine Negative <=Trace mg/dL LAB URINALYSIS - AUTOMATED METHOD 09/05/2024 10:16 AM [facility] Glucose, Urine Negative Negative mg/dL LAB URINALYSIS - AUTOMATED METHOD 09/05/2024 10:16 AM [facility] Ketones, Urine Negative Negative mg/dL LAB URINALYSIS - AUTOMATED METHOD 09/05/2024 10:16 AM [facility] Urobilinogen, Urine 1.0 0.2 - 1.0 mg/dL LAB URINALYSIS - AUTOMATED METHOD 09/05/2024 10:16 AM [facility] Bilirubin, Urine Negative Negative LAB URINALYSIS - AUTOMATED METHOD 09/05/2024 10:16 AM [facility] Blood, Urine Negative Negative LAB URINALYSIS - AUTOMATED METHOD 09/05/2024 10:16 AM [facility] Urine Urine specimen obtained by clean catch procedure / Unknown Non-blood Collection / Unknown 09/05/2024 9:30 AM EDT 09/05/2024 9:40 AM EDT Tena GILL LAB URINE ORDERABLES Final R esult Performing Organization Address City/[facility]/ZIP Co de Phone Number [facility] [address] [place] [address], [place] [phone] * Rushing urine culture tube (09/05/2024 9:30 AM EDT) Only the most recent of2 resultswithin the time period is included. [facility] Extra Tube Hold for add-ons. 09/05/2024 11:01 AM EDT [facility] Comment:Auto resulted. Urine Urine specimen obtained by clean catch procedure / Unknown Non-blood Collection / Unknown 09/05/2024 9:30 AM EDT 09/05/2024 9:40 AM EDT Tena GILL LAB URINE ORDERABLES Final R esult Performing Organization Address City/[facility] Co de Phone Number [facility] [address] [place] [address], [place] [phone] * Basic metabolic panel (09/03/2024 5:36 AM EDT) Only the most recent of6 resultswithin the time period is included. [facility] Sodium 137 133 - 145 mmol/L LAB CHEMISTRY METHOD 09/03/2024 7:22 AM EDT [facility] Potassium 4.2 3.5 - 5.5 mmol/L LAB CHEMISTRY METHOD 09/03/2024 7:22 AM EDT [facility] Chloride 105 96 - 110 mmol/L LAB CHEMISTRY METHOD 09/03/2024 7:22 AM EDT [facility] CO2 27 21 - 32 mmol/L LAB CHEMISTRY METHOD 09/03/2024 7:22 AM EDT [facility] Anion Gap 5 3 - 11 LAB CHEMISTRY METHOD 09/03/2024 7:22 AM EDT [facility] Glucose 90 70 - 100 mg/dL LAB CHEMISTRY METHOD 09/03/2024 7:22 AM EDT [facility] BUN 19 5 - 25 mg/dL LAB CHEMISTRY METHOD 09/03/2024 7:22 AM EDT [facility] Creatinine 0.93 0.70 - 1.30 mg/dL LAB CHEMISTRY METHOD 09/03/2024 7:22 AM EDT [facility] eGFR 82 >=60 mL/min/1. 73m2 LAB CHEMISTRY METHOD 09/03/2024 7:22 AM EDT [facility] Comment:Calculation based on the Chronic Kidney Disease Epidemiology Collaboration (CKD-EPI) equation refit without adjustment for race. BUN/Creatinine Ratio 20.4 LAB CHEMISTRY METHOD 09/03/2024 7:22 AM EDT [facility] Calcium 9.2 8.5 - 10.5 mg/dL LAB CHEMISTRY METHOD 09/03/2024 7:22 AM EDT [facility] Blood Venous blood specimen / Unknown Venipuncture / Unknown 09/03/2024 5:36 AM EDT 09/03/2024 6:24 AM EDT Danielle Monsalve NP LAB BLOOD ORDERABLES Final Result [facility] [address] [place] [address], * CT Head wo Contrast (09/02/2024 1:01 PM EDT) Only the most recent of3 resultswithin the time period is included. 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 -------- FINAL REPORT -------- Dictated By: Danielle Weston Dictated Date: 09/02/2024 14:17 ET Assigned Physician: Danielle Weston Reviewed and Electronically Signed By: Danielle Weston Signed Date: 09/02/2024 14:23 ET Workstation ID: [id number] Transcribed By: Self Edit Transcribed Date: 09/02/2024 14:17 ET Narrative 09/02/2024 2:23 PM EDT INDICATION: Recent stroke with hemorrhagic transformation Technique: Axial images were obtained from the skull base to the vertex without contrast enhancement. Coronal and sagittal reformats obtained. Scanner: GE LightSpeed 64 slice VCT Dose reduction technique: ASIR (Adaptive statistical iterative reconstruction) Dose: total exam DLP 1065 mGY per cm Comparison: Compared to multiple prior studies most recent from August 24, 2024 FINDINGS: Intracranial contents: No acute intracranial hemorrhage, midline shift or mass-effect. The ventricles, sulci, sylvian fissures and basilar cisterns are symmetrically enlarged most consistent with atrophy. Moderate diffuse periventricular white matter changes are most consistent with small vessel ischemic disease. There are no abnormal intra or extra-axial fluid collections. Low-attenuation within the left occipital lobe mildly improved when compared with the prior study consistent with known left posterior circulation infarct. Bony structures/soft tissues: Within normal limits for the patient's age. Sinuses: paranasal sinuses are clear. Procedure Note Danielle Weston MD - 09/02/2024 INDICATION: Recent stroke with hemorrhagic transformation Technique: Axial images were obtained from the skull base to the vertexwithout contrast enhancement. Coronal and sagittal reformats obtained. Scanner: [employer] LightSpeed 64 slice VCT Dose reduction technique: ASIR (Adaptive statistical iterativereconstruction) Dose: total exam DLP 1065 mGY per cm Comparison: Compared to multiple prior studies most recent from July FINDINGS: Intracranial contents: No acute intracranial hemorrhage, midline shift ormass- effect. The ventricles, sulci, sylvian fissures and basilar cisternsare symmetrically enlarged most consistent with atrophy. Moderate diffuseperiventricular white matter changes are most consistent with small vesselischemic disease. There are no abnormal intra or extra-axial fluidcollections. Low-attenuation within the left occipital lobe mildlyimproved when compared with the prior study consistent with known leftposterior circulation infarct. Bony structures/soft tissues: Within normal limits for the patient'[place]. Sinuses: paranasal sinuses are clear. IMPRESSION: Left occipital infarct without acute hemorrhage. -------- FINAL REPORT -------- Dictated By: Danielle Weston Dictated Date: 09/02/2024 14:17 ET Assigned Physician: Danielle Weston Reviewed and Electronically Signed By: Danielle Weston Signed Date: 09/02/2024 14:23 ET Workstation ID: [id number] Transcribed By: Self Edit Transcribed Date: 09/02/2024 14:17 ET Gilda Munoz DO IMG CT PROCEDURES Final R esult * (ABNORMAL) POCT Glucose, blood (08/28/2024 10:56 AM EDT) Only the most recent of2 resultswithin the time period is included. Pathologist [facility] Glucose POCT 117(H) 70 - 100 mg/dL 08/28/2024 10:57 AM EDT [facility] Blood Capillary blood specimen / Unknown 08/28/2024 10:56 AM EDT 08/28/2024 10:58 AM EDT Gilda Munoz DO LAB POINT OF CARE TEST DOCKED DEVICE UNSOLICITED RESULTS Final Result [facility] [address] [place] [address], [place] [phone] * (ABNORMAL) CBC auto differential (08/28/2024 6:21 AM EDT) Only the most recent of6 resultswithin the time period is included. WBC 12.3(H) 4.8 - 10.8 K/[facility] HEMETOLOGY METHOD 08/28/2024 6:43 AM EDT [facility] RBC 4.10(L) 4.50 - 5.50 M/[facility] LAB HEMETOLOGY METHOD 08/28/2024 6:43 AM EDT [facility] Hemoglobin 13.5 13.5 - 17.5 g/dL LAB HEMETOLOGY METHOD 08/28/2024 6:43 AM [facility] Hematocrit 41.0(L) 42.0 - 54.0 % LAB HEMETOLOGY METHOD 08/28/2024 6:43 AM [facility] MCV 99.3(H) 79.0 - 98.0 FL LAB HEMETOLOGY METHOD 08/28/2024 6:43 AM [facility] MCH 32.7(H) 27.0 - 32.0 pcg LAB HEMETOLOGY METHOD 08/28/2024 6:43 AM [facility] MCHC 32.9 32.0 - 37.0 g/dL LAB HEMETOLOGY METHOD 08/28/2024 6:43 AM [facility] RDW 13.5 11.0 - 15.0 % LAB HEMETOLOGY METHOD 08/28/2024 6:43 AM [facility] Platelets 214 130 - 400 K/mcL LAB HEMETOLOGY METHOD 08/28/2024 6:43 AM [facility] MPV 9.4 7.0 - 11.0 FL LAB HEMETOLOGY METHOD 08/28/2024 6:43 AM [facility] NRBC 0.0 <1.0 % LAB HEMETOLOGY METHOD 08/28/2024 6:43 AM [facility] NRBC Absolute 0.00 <0.10 K/mcL LAB HEMETOLOGY METHOD 08/28/2024 6:43 AM [facility] Neutrophils Relative 74.0 % LAB HEMETOLOGY METHOD 08/28/2024 6:43 AM [facility] Lymphocytes Relative 13.8 % LAB HEMETOLOGY METHOD 08/28/2024 6:43 AM [facility] Monocytes Relative 9.2 % LAB HEMETOLOGY METHOD 08/28/2024 6:43 AM EDT [facility] Eosinophils Relative 2.1 % LAB HEMETOLOGY METHOD 08/28/2024 6:43 AM EDT [facility] Basophils Relative 0.4 % LAB HEMETOLOGY METHOD 08/28/2024 6:43 AM EDT [facility] Immature Granulocytes Relative 0.5 % LAB HEMETOLOGY METHOD 08/28/2024 6:43 AM EDT [facility] Neutrophils Absolute 9.09(H) 1.50 - 7.00 K/mcL LAB HEMETOLOGY METHOD 08/28/2024 6:43 AM EDT [facility] Lymphocytes Absolute 1.70 1.00 - 5.00 K/mcL LAB HEMETOLOGY METHOD 08/28/2024 6:43 AM EDT [facility] Monocytes Absolute 1.13(H) 0.20 - 1.00 K/mcL LAB HEMETOLOGY METHOD 08/28/2024 6:43 AM EDT [facility] Eosinophils Absolute 0.26 0.00 - 0.50 K/mcL LAB HEMETOLOGY METHOD 08/28/2024 6:43 AM EDT [facility] Basophils Absolute 0.05 0.00 - 0.20 K/mcL LAB HEMETOLOGY METHOD 08/28/2024 6:43 AM EDT [facility] Immature Granulocytes Absolute 0.06(H) 0.00 - 0.03 K/mcL LAB HEMETOLOGY METHOD 08/28/2024 6:43 AM EDT [facility] Blood Venous blood specimen / Unknown Venipuncture / Unknown 08/28/2024 6:21 AM EDT 08/28/2024 6:30 AM EDT us Jacqueline Armas NP LAB BLOOD ORDERABLES Final Resul t [facility] [address] [place] [address], [place] [phone] * ECG-Annotated (08/28/2024) Provider Onbase MD ECG ORDERABLES Final Result * (ABNORMAL) Vitamin B12 and folate (08/24/2024 5:48 AM EDT) [facility] Vitamin B-12 635 250 - 900 pcg/mL LAB CHEMISTRY METHOD 08/24/2024 7:41 AM EDT [facility] Folate >20.0(H) 2.8 - 17.0 ng/ml LAB CHEMISTRY METHOD 08/24/2024 7:41 AM EDT [facility] Blood Venous blood specimen / Unknown Venipuncture / Unknown 08/24/2024 5:48 AM EDT 08/24/2024 6:11 AM EDT Erika GILL LAB BLOOD ORDERABLES Final Result [facility] [address] [place] [address], [place] [phone] * (ABNORMAL) TRANSTHORACIC ECHOCARDIOGRAM (TTE) COMPLETE W/ CONTRAST (08/23/2024 4:17 PM EDT) [facility] Left Atrium Minor Mcintosh 7.4 cm CV PACS Left Atrium Major Mcintosh 8.4 cm CV PACS LA Area Sys (A2C) 35 cm2 CV PACS LA Area Sys (A4C) 38 cm2 CV PACS LA Volume (BP) 143 mL CV PACS RA Area 32.3 cm2 CV PACS RA 2D Volume 114 mL CV PACS AV Mean Gradient 6 mmHg CV PACS Ao VTI 27.5 cm CV PACS AV Peak Ross 1.5 m/s CV PACS AV Peak Ross 1.5 m/s CV PACS AV Peak Gradient 9 mmHg CV PACS AV Area Continuity Equation 3.8 cm2 CV PACS AV Area Peak Velocity 3.6 cm2 CV PACS Aortic Sinus Valsalva 4.0 cm CV PACS Ascending Aorta 4.1 cm CV PACS IVSD 1.2(A) 0.6 - 1.0 cm CV PACS LVIDD 4.5 4.2 - 5.8 cm CV PACS LVIDS 2.8 2.5 - 4.0 cm CV PACS LVOT Diameter 2.4 cm CV PACS LVOT Mean Ross 0.8 m/s CV PACS LVOT Mean Grad 3 mmHg CV PACS LVOT Peak VTI 23.0 cm CV PACS LVOT Peak Ross 1.0 m/s CV PACS LVOT Peak Gradient 6 mmHg CV PACS LVPWD 1.0 0.6 - 1.0 cm CV PACS MV E' Tissue Velocity Lateral 12 cm/s CV PACS MV E' Tissue Velocity Septal 5 cm/s CV PACS LVOT Area 4.5 cm2 CV PACS LVOT Stroke Volume 86 mL CV PACS MV Peak E Ross 0.70 m/s CV PACS RV Diastolic Basal Dimension 4.5(A) 2.5 - 4.1 cm CV PACS RV S' 8 cm/s CV PACS TAPSE 12 mm CV PACS TR Peak Velocity 2.40 m/s CV PACS TR Peak Gradient 27 mmHg CV PACS E/E' Ratio Septal 14 CV PACS E/E' Ratio Averaged 10 CV PACS LVOT Stroke Index 40 mL/m2 CV PACS Relative Wall Thickness ratio 0.44(A) 0.24 - 0.42 CV PACS LVOT:AV VTI Index 0.84 CV PACS FS 38 % CV PACS LV Mass 2D 175 96 - 200 g CV PACS Ascending Aorta Index 1.91 cm/m2 CV PACS LVOT flow 362 mL/s CV PACS RA 2D Volume Index 53 18 - 32 mL/m2 CV PACS CATHRYN Index (VTI) 1.76 cm2/m2 CV PACS CATHRYN Index (Pk Ross) 1.67 cm2/m2 CV PACS LVIDD Index 2.09 cm/m2 CV PACS LVIDS Index 1.30 cm/m2 CV PACS E/E' Ratio Lateral 6 CV PACS LA Volume Index (BP) 67 mL/m2 CV PACS LV Mass Index 2D 81 50 - 102 g/m2 CV PACS BSA 2.17 m2 CV PACS Right Ventricular Peak Systolic Pressure 31 mmHg CV PACS Est. RA Pressure 8 mmHg CV PACS RV Free Wall Peak S' 8 cm/s CV PACS RA Major Mcintosh 7.4 cm CV PACS RA Major Mcintosh Index 3.4(A) 2.1 - 2.7 cm/m2 CV PACS AV Area 2D 3.4 cm2 CV PACS CATHRYN Index (2D) 1.58 cm2/m2 CV PACS AV Area Index 1.6 CV PACS Anatomical Region Laterality Modality Ultrasound Narrative 08/23/2024 5:10 PM EDT Left ventricle cavity size is normal. There is mild hypertrophy. Systolic function is normal with an ejection fraction of 55-60%. There are no regional LV wall motion abnormalities. Unable to assess diastolic function due to atrial fibrillation. Right ventricle cavity is mildly enlarged. Right ventricular systolic function is mildly reduced. Severe biatrial enlargement. Mild aortic valve regurgitation. Mild mitral regurgitation. The right ventricular systolic pressure is normal. The RVSP is estimated at 31 mmHg. The ascending aorta is mildly dilated (4.1 cm). Left Ventricle Left ventricle cavity size is normal. There is mild hypertrophy. Systolic function is normal with an ejection fraction of 55-60%. There are no regional LV wall motion abnormalities. Unable to assess diastolic function due to atrial fibrillation. Right Ventricle Right ventricle cavity is mildly dilated. Systolic function is mildly reduced. Left Atrium Left atrium cavity is severely dilated. Right Atrium Right atrium cavity is severely dilated. IVC/SVC Inferior vena cava is dilated. RA pressures is estimated to be 8 mmHg (IVC diameter >21 mm and decreases >50% during inspiration). Mitral Valve The leaflets are mildly thickened. There is annular calcification. There is mild regurgitation. There is no evidence of mitral valve stenosis. Tricuspid Valve The leaflets exhibit normal excursion. There is mild regurgitation. There is no evidence of tricuspid valve stenosis. The right ventricular systolic pressure is normal. The RVSP is estimated at 31 mmHg. Aortic Valve The aortic valve is trileaflet. The leaflets are thickened. There is mild regurgitation. There is no evidence of aortic valve stenosis. Pulmonic Valve Pulmonic valve structure is normal. There is mild pulmonic valve regurgitation. There is no evidence of pulmonic valve stenosis. Ascending Aorta The Sinus of Valsalva is (4.0 cm). The ascending aorta is (4.1 cm). Pericardium There is no pericardial effusion. Study Details Overall the study quality was technically difficult. Study was difficult due to: poor endocardial visualization and procedure performed with the patient in a supine position. us Lazara GILL CV ECHO PROCEDURES Final R esult * CT Angio Head/Neck wo and/or w Contrast (08/23/2024 12:21 PM EDT) Anatomical Region Laterality Modality Head and Neck Computed Tomogra phy 08/23/2024 12:4 8 PM EDT Impressions 08/23/2024 12:57 PM EDT No change in subacute infarcts in the left occipital lobe compared to recent MRI. No hemorrhage or mass effect. Moderate stenosis at the right cervical vertebral artery origin. No other significant stenosis or occlusion in the cervical and intracranial arterial vasculature. -------- FINAL REPORT -------- Dictated By: ROBERTO RAMOS Dictated Date: 08/23/2024 12:48 ET Assigned Physician: ROBERTO RAMOS Reviewed and Electronically Signed By: ROBERTO RAMOS Signed Date: 08/23/2024 12:57 ET Workstation ID: [id number] Transcribed By: Self Edit Transcribed Date: 08/23/2024 12:48 ET Narrative 08/23/2024 12:57 PM EDT PROCEDURE: Head CT and head/neck CTA INDICATION: Stroke, pain TECHNIQUE: CTA of the head and neck with intravenous contrast. Multiplanar reformats. The examination was performed utilizing dose reduction techniques.3-D or MIP images were produced with postprocessing on an independent computer workstation. 90 mL [id number] injected intravenously without complication. COMPARISON: 08/23/2024 MRI FINDINGS: CT head: No change in extent of left BATTER OUT vascular territory infarct with hypodensity in the left occipital lobe. No acute intracranial hemorrhage or significant mass effect. No new territorial infarction. Unchanged chronic encephalomalacia in the right parietal lobe related to old infarct. Ventricles, sulci, and cisterns are normal in size and configuration. No hydrocephalus. Sinuses and mastoid air cells are clear. No scalp hematoma or skull fracture. CTA Neck: There is a left-sided aortic arch. Major branching arteries arising from the aortic arch are patent.. Moderate stenosis at the right vertebral artery origin. More distal portions of the right cervical vertebral artery are patent. Left cervical vertebral artery is patent. Common carotid and cervical internal carotid arteries are patent without significant stenosis. No dissection. Left upper lobectomy. No pneumothorax at the lung apices. Emphysema noted. Degenerative changes seen throughout the cervical spine. Paraspinal muscles are normal. CTA Head: Intracranial portions of the internal carotid arteries are patent. M1 and A1 segments are patent. Distal middle cerebral and anterior cerebral arteries are patent. Vertebrobasilar system is patent. Superior cerebellar and posterior cerebral arteries are patent. No intracranial aneurysm or vascular malformation. Procedure Note Roberto Ramos MD - 08/23/2024 PROCEDURE: Head CT and head/neck CTA INDICATION: Stroke, pain TECHNIQUE: CTA of the head and neck with intravenous contrast. Multiplanarreformats. The examination was performed utilizing dose reductiontechniques.3-D or MIP images were produced with postprocessing on anindependent computer workstation. 90 mL [id number] injected intravenouslywithout complication. COMPARISON: 08/23/2024 MRI FINDINGS: CT head: No change in extent of left BATTER OUT vascular territory infarct withhypodensity in the left occipital lobe. No acute intracranial hemorrhage or significant mass effect. No newterritorial infarction. Unchanged chronic encephalomalacia in the right parietal lobe related toold infarct. Ventricles, sulci, and cisterns are normal in size and configuration. Nohydrocephalus. Sinuses and mastoid air cells are clear. No scalp hematoma or skull fracture. CTA Neck: There is a left-sided aortic arch. Major branching arteries arising from the aortic arch are patent.. Moderate stenosis at the right vertebral artery origin. More distalportions of the right cervical vertebral artery are patent. Left cervicalvertebral artery is patent. Common carotid and cervical internal carotid arteries are patent withoutsignificant stenosis. No dissection. Left upper lobectomy. No pneumothorax at the lung apices. Emphysemanoted. Degenerative changes seen throughout the cervical spine.Paraspinal muscles are normal. CTA Head: Intracranial portions of the internal carotid arteries are patent. M1 andA1 segments are patent. Distal middle cerebral and anterior cerebral arteries are patent. Vertebrobasilar system is patent. Superior cerebellar and posteriorcerebral arteries are patent. No intracranial aneurysm or vascular malformation. IMPRESSION: No change in subacute infarcts in the left occipital lobe compared torecent MRI. No hemorrhage or mass effect. Moderate stenosis at the right cervical vertebral artery origin. No othersignificant stenosis or occlusion in the cervical and intracranialarterial vasculature. -------- FINAL REPORT -------- Dictated By: ROBERTO RAMOS Dictated Date: 08/23/2024 12:48 ET Assigned Physician: ROBERTO RAMOS Reviewed and Electronically Signed By: ROBERTO RAMOS Signed Date: 08/23/2024 12:57 ET Workstation ID: [id number] Transcribed By: Self Edit Transcribed Date: 08/23/2024 12:48 ET Lazara GILL IM CT PROCEDURES Final Re sult * MR Brain wo and w Contrast (08/23/2024 9:40 AM EDT) Anatomical Region Laterality Modality Head and Neck Magnetic Resonan ce 08/23/2024 10:0 6 AM EDT Impressions 08/23/2024 10:37 AM EDT 1. 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 2. Faint 4 mm focus of enhancement in the left basal ganglia. This is a nonspecific finding. It could represent a benign vascular lesion such as a capillary telangiectasia, but in this patient with a history of lung cancer this could represent a metastasis. 3. Oval nonenhancing structure in the left pterygopalatine fossa. MRI and CT characteristics suggest that this represents a cyst. This is likely a chronic benign process given smooth bony remodeling evident on CT. -------- FINAL REPORT -------- Dictated By: Tal Kauffman Dictated Date: 08/23/2024 10:06 ET Assigned Physician: Tal Kauffman Reviewed and Electronically Signed By: Tal Kauffman Signed Date: 08/23/2024 10:37 ET Workstation ID: [id number] Transcribed By: Self Edit Transcribed Date: 08/23/2024 10:11 ET Narrative 08/23/2024 10:37 AM EDT PROCEDURE: Contrast-enhanced MRI of the brain. HISTORY: Brain mass or lesion. TECHNIQUE: Multiplanar multisequence MRI of the brain with and without intravenous contrast. IV CONTRAST DOSE: 20 mL intravenous Dotarem from a 20 mL vial with 0 mL discarded. COMPARISON: Head CT 08/23/2024. FINDINGS: BRAIN: There is irregular diffusion restriction and T2 signal abnormality in the left BATTER OUT territory, consistent with an acute or subacute infarct. Background of patchy T2 hyperintensities in the supratentorial white matter consistent with mild chronic microvascular ischemic disease. Small area of cortical encephalomalacia in the posterior medial right parietal lobe consistent with sequela of a remote cortical infarct. 4 mm focus of faint enhancement in the left basal ganglia, series 10 image 133. No extra-axial fluid collection. No hydrocephalus. The major intracranial flow voids are preserved. Age commensurate ventricles and sulci. No abnormal enhancement. ORBITS: Normal. SINUSES/MASTOIDS: Normal. CALVARIUM: Normal. OTHER: Oval T2 hyperintense 1.9 x 1.4 by 1.7 cm nonenhancing T2 hyperintense, T1 hypointense lesion in the left pterygopalatine fossa. This appears to be long-standing process given smooth bony remodeling evident on review of the recent comparison CT. Hounsfield unit measurements on CT suggest that this represents a cyst. Partially visible degenerative changes of the cervical spine. Mild degenerative changes of the temporomandibular joints. Procedure Note Tal Kauffman MD - 08/23/2024 PROCEDURE: Contrast-enhanced MRI of the brain. HISTORY: Brain mass or lesion. TECHNIQUE: Multiplanar multisequence MRI of the brain with and withoutintravenous contrast. IV CONTRAST DOSE: 20 mL intravenous Dotarem from a 20 mL vial with 0 mLdiscarded. COMPARISON: Head CT 08/23/2024. FINDINGS: BRAIN: There is irregular diffusion restriction and T2 signal abnormalityin the left BATTER OUT territory, consistent with an acute or subacute infarct.Background of patchy T2 hyperintensities in the supratentorial whitematter consistent with mild chronic microvascular ischemic disease. Small area of cortical encephalomalacia in the posterior medial rightparietal lobe consistent with sequela of a remote cortical infarct. 4 mm focus of faint enhancement in the left basal ganglia, series 10 . No extra-axial fluid collection. No hydrocephalus. The majorintracranial flow voids are preserved. Age commensurate ventricles andsulci. No abnormal enhancement. ORBITS: Normal. SINUSES/MASTOIDS: Normal. CALVARIUM: Normal. OTHER: Oval T2 hyperintense 1.9 x 1.4 by 1.7 cm nonenhancing [id number], T1 hypointense lesion in the left pterygopalatine fossa.This appears to be long- standing process given smooth bony remodelingevident on review of the recent comparison CT. Hounsfield unitmeasurements on CT suggest that this represents a cyst. Partially visible degenerative changes of the cervical spine. Milddegenerative changes of the temporomandibular joints. IMPRESSION: 1. 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 2. Faint 4 mm focus of enhancement in the left basal ganglia. This is anonspecific finding. It could represent a benign vascular lesion such asa capillary telangiectasia, but in this patient with a history of lungcancer this could represent a metastasis. 3. Oval nonenhancing structure in the left pterygopalatine fossa. MRIand CT characteristics suggest that this represents a cyst. This islikely a chronic benign process given smooth bony remodeling evident onCT. -------- FINAL REPORT -------- Dictated By: Tal Kauffman Dictated Date: 08/23/2024 10:06 ET Assigned Physician: Tal Kauffman Reviewed and Electronically Signed By: Tal Kauffman Signed Date: 08/23/2024 10:37 ET Workstation ID: [id number] Transcribed By: Self Edit Transcribed Date: 08/23/2024 10:11 ET us Fritz Kee MD IM MRI PROCEDURES Final Re sult * Troponin I high sensitivity (08/23/2024 8:29 AM EDT) High Sensitivity Troponin I 19 <=79 ng/L LAB CHEMISTRY METHOD 08/23/2024 10:10 AM EDT [facility] Blood Venous blood specimen / Unknown Venipuncture / Unknown 08/23/2024 8:29 AM EDT 08/23/2024 8:34 AM EDT Narrative [facility] - 08/23/2024 10:10 AM EDT High levels of biotin in samples may falsely decrease hsTroponin values. Use caution when interpreting hsTroponin results in patients taking biotin who exhibit renal impairment (eGFR <60) or in patients taking more than 20 mg/day of biotin. us Lazara GILL LAB BLOOD ORDERABLES Final Result Performing Organization Address [facility]/ZIP Co de Phone Number [facility] [address] [place] [address], [place] [phone] * Treponema pallidum antibody with reflex to RPR and particle agglutination (08/23/2024 8:02 AM EDT) T. Pallidum Antibodies Negative Negative LAB CHEMISTRY METHOD 08/23/2024 10:01 AM EDT [facility] Blood Venous blood specimen / Unknown Venipuncture / Unknown 08/23/2024 8:02 AM EDT 08/23/2024 8:10 AM EDT Lazara GILL LAB BLOOD ORDERABLES Final Result Performing Organization Address [facility] de Phone Number [facility] [address] [place] [address], [place] [phone] * Thyroid stimulating hormone with reflex to free t4 and free t3 (08/23/2024 8:02 AM EDT) TSH 1.28 0.40 - 4.00 mcIU/mL LAB CHEMISTRY METHOD 08/23/2024 9:52 AM EDT [facility] Blood Venous blood specimen / Unknown Venipuncture / Unknown 08/23/2024 8:02 AM EDT 08/23/2024 8:[address] [place] LAB BLOOD ORDERABLES Final Result Performing Organization Address [facility] Co de Phone Number [facility] [address] [place] [address], [place] [phone] * Borrelia burgdorferi antibody (08/23/2024 8:02 AM EDT) Pathologist [facility] Lyme Ab Negative Negative LAB CHEMISTRY METHOD 08/23/2024 9:25 AM EDT [facility] Comment: No laboratory evidence of infection with B. burgdorferi (Lyme disease). Negative results may occur in patients recently infected (<=14 days) with B. burgdorferi. If recent infection is suspected, repeat testing on a new sample collected in 7- 14 days is recommended. Blood Venous blood specimen / Unknown Venipuncture / Unknown 08/23/2024 8:02 AM EDT 08/23/2024 8:10 AM EDT Lazara GILL LAB BLOOD ORDERABLES Final Result [facility] [address] [place] [address], * (ABNORMAL) Vitamin B2 (08/23/2024 8:02 AM EDT) [facility] Vitamin B2 (Riboflavin) 121.7(H) 6.2 - 39.0 nmol/L 08/29/2024 6:08 AM EDT [facility] Comment: Vitamin supplementation within 24 hours prior to blood draw may affect the accuracy of results. This test was developed and its analytical performance characteristics have been determined by [place]. It has not been cleared or approved by the FDA. This assay has been validated pursuant to the CLIA regulations and is used for clinical purposes. Test Performed by [facility], [place], [address] [place] [address] Marco Douglas M.D., Ph.D., Director of Laboratories , CLIA [id number] Blood Venous blood specimen / Unknown Venipuncture / Unknown 08/23/2024 8:02 AM EDT 08/23/2024 8:[address] [place] LAB BLOOD ORDERABLES Final Result Performing Organization Address City/[facility]/ZIP Co de Phone [place] [address] [place] [address] * Thyroid stimulating hormone (08/23/2024 8:02 AM EDT) Pathologist [facility] TSH 1.28 0.40 - 4.00 mcIU/mL LAB CHEMISTRY METHOD 08/23/2024 9:52 AM EDT [facility] Blood Venous blood specimen / Unknown Venipuncture / Unknown 08/23/2024 8:02 AM EDT 08/23/2024 8:10 AM EDT Fritz Kee MD LAB BLOOD ORDERABLES Final Result Performing Organization Address [facility] Co de Phone Number [facility] [address] [place] [address], [place] [phone] * (ABNORMAL) Creatine kinase and CKMB (08/23/2024 8:02 AM EDT) [facility] Total CK 247 22 - 269 unit/L LAB CHEMISTRY METHOD 08/23/2024 1:08 PM EDT [facility] CK-MB 3.7(H) 1.0 - 3.6 ng/mL LAB CHEMISTRY METHOD 08/23/2024 1:08 PM EDT [facility] CK-MB Index 0.0 0.0 - 5.0 LAB CHEMISTRY METHOD 08/23/2024 1:08 PM EDT [facility] Blood Venous blood specimen / Unknown Venipuncture / Unknown 08/23/2024 8:02 AM EDT 08/23/2024 8:10 AM EDT us Lazara GILL LAB BLOOD ORDERABLES Final Result Performing Organization Address [facility]/ZIP Co de Phone Number [facility] [address] [place] [address], [place] [phone] * Rapid strep A screen (08/22/2024 10:09 PM EDT) Strep A Ag Negative Negative, Invalid 08/22/2024 10:34 PM EDT [facility] Comment:Refer to Throat Cult ure. Swab Structure of anterior portion of neck / Unknown Non-blood Collection / Unknown 08/22/2024 10:09 PM EDT 08/22/2024 10:23 PM EDT Taylor GILL LAB MICROBIOLOGY - GENERAL ORDE RABLES Final Result [facility] [address] [place] [address], [place] [phone] * Culture throat (08/22/2024 10:09 PM EDT) Culture, Throat No pathogens isolated. 08/24/2024 12:52 PM EDT [facility] Swab Structure of anterior portion of neck / Unknown Non-blood Collection / Unknown 08/22/2024 10:09 PM EDT 08/22/2024 10:23 PM EDT Taylor GILL LAB MICROBIOLOGY - GENERAL ORDE RABLES Final Result [facility] [address] [place] [address], [place] [phone] * CT Chest/Abdomen/Pelvis w Contrast (08/22/2024 8:07 PM EDT) Anatomical Region Laterality Modality Body Computed Tomogra phy 08/22/2024 8:29 PM EDT Addenda Addendum by Racheal Dela Cruz MD on 09/02/2024 1:12 PM EDT ADDENDUM: Addendum: Direct comparison is now made with a prior study dated December 07, 2023. Mild scarring and emphysema are without significant change. Mild thoracic spine compression fractures at T4, T5 and T6 are without change. This document has been electronically signed by: Racheal Rodrigez MD on 09/02/2024 13:12:22 Impressions 08/22/2024 8:29 PM EDT 1. No acute cardiopulmonary disease. 2. There is a trace amount of pelvic free fluid. 3. There are tiny nonobstructive calculi within the bilateral kidneys. 4. There is colonic diverticulosis without diverticulitis. This document has been electronically signed by: Racheal Rodrigez MD on 08/22/2024 20:29:39 Narrative 08/22/2024 8:29 PM EDT INDICATION: Sepsis CT chest, abdomen and pelvis with contrast Comparison: None provided Findings: The heart is enlarged. There are coronary artery calcifications and calcifications present in association with the mitral annulus and aortic valve. The visualized thyroid and mediastinum are unremarkable. Prior left upper lobectomy. Mild linear scarring within the left lower lobe. Mild emphysematous changes are present within the lungs. No consolidation, pleural effusion or pneumothorax. There are small nonobstructive calculi within the bilateral kidneys. There are foci of scarring within the right kidney. There are several kidney cysts. There is no hydronephrosis. There is pancreatic volume loss. Remaining abdominal organs are unremarkable. There are no calcified gallstones. No bowel obstruction, pneumoperitoneum, or pneumatosis. There are small bilateral inguinal hernias containing fat. There is a trace amount of pelvic free fluid. The prostate gland and urinary bladder are unremarkable. Colonic diverticulosis without diverticulitis. No bowel edema or dilatation. There are mild compression fractures at T4, T5 and T6. These appear to be chronic. There is no acute fracture. Procedure Note Barbara-Racheal Rodrigez MD - 09/02/2024 INDICATION: Sepsis CT chest, abdomen and pelvis with contrast Comparison: None provided Findings: The heart is enlarged. There are coronary artery calcifications and calcifications present in association with the mitral annulus and aortic valve. The visualized thyroid and mediastinum are unremarkable. Prior left upper lobectomy. Mild linear scarring within the left lower lobe. Mild emphysematous changes are present within the lungs. No consolidation, pleural effusion or pneumothorax. There are small nonobstructive calculi within the bilateral kidneys.There are foci of scarring within the right kidney. There are several kidney cysts. There is no hydronephrosis. There is pancreatic volume loss. Remaining abdominal organs are unremarkable. There are no calcified gallstones. No bowel obstruction, pneumoperitoneum, or pneumatosis. There are small bilateral inguinal hernias containing fat. There is a trace amount of pelvic free fluid. The prostate gland and urinarybladder are unremarkable. Colonic diverticulosis without diverticulitis. No bowel edema or dilatation. There are mild compression fractures at T4, T5 and T6. These appear to be chronic. There is no acute fracture. IMPRESSION: 1. No acute cardiopulmonary disease. 2. There is a trace amount of pelvic free fluid. 3. There are tiny nonobstructive calculi within the bilateral kidneys. 4. There is colonic diverticulosis without diverticulitis. This document has been electronically signed by: Racheal Rodrigez MD on 08/22/2024 20:29:39 us Yesy GILL IMG CT PROCEDURES Edit ed Result - Final * (ABNORMAL) B-type natriuretic peptide (08/22/2024 7:48 PM EDT) BNP 451(H) <=100 pcg/mL LAB CHEMISTRY METHOD 08/22/2024 9:09 PM EDT [facility] Blood Venous blood specimen / Unknown Venipuncture / Unknown 08/22/2024 7:48 PM EDT 08/22/2024 8:21 PM EDT us Yesy GILL LAB BLOOD ORDERABLES F inal Result [facility] [address] [place] [address], [place] [phone] * XR Chest 2 Views (08/22/2024 6:56 PM EDT) Anatomical Region Laterality Modality Body Radiographic Moon ging 08/23/2024 8:31 AM EDT Impressions 08/23/2024 8:40 AM EDT FINDINGS/IMPRESSION: No pneumonia or pulmonary edema. No pleural effusion or pneumothorax. Cardiomediastinal contours are stable compared to prior with cardiac silhouette enlargement present. Degenerative changes seen throughout the bones. Left rotator cuff repair bone-anchored noted. -------- FINAL REPORT -------- Dictated By: ROBERTO RAMOS Dictated Date: 08/23/2024 08:31 ET Assigned Physician: ROBERTO RAMOS Reviewed and Electronically Signed By: ROBERTO RAMOS Signed Date: 08/23/2024 08:40 ET Workstation ID: [id number] Transcribed By: Self Edit Transcribed Date: 08/23/2024 08:32 ET Narrative 08/23/2024 8:40 AM EDT XR CHEST 2 VIEWS INDICATION: Dyspnea TECHNIQUE: XR CHEST 2 VIEWS COMPARISON: 03/11/2023. Procedure Note Roberto Ramos MD - 08/23/2024 XR CHEST 2 VIEWS INDICATION: Dyspnea TECHNIQUE: XR CHEST 2 VIEWS COMPARISON: 03/11/2023. IMPRESSION: FINDINGS/IMPRESSION: No pneumonia or pulmonary edema. No pleural effusionor pneumothorax. Cardiomediastinal contours are stable compared to priorwith cardiac silhouette enlargement present. Degenerative changes seenthroughout the bones. Left rotator cuff repair bone-anchored noted. -------- FINAL REPORT -------- Dictated By: ROBERTO RAMOS Dictated Date: 08/23/2024 08:31 ET Assigned Physician: ROBERTO RAMOS Reviewed and Electronically Signed By: ROBERTO RAMOS Signed Date: 08/23/2024 08:40 ET Workstation ID: [id number] Transcribed By: Self Edit Transcribed Date: 08/23/2024 08:32 ET us Fritz Kee MD IMG XR PROCEDURES Final Res ult * Culture urine (08/22/2024 6:23 PM EDT) Culture, Urine >100,000 CFU/mL Mixed urogenital soo, no uropathogens present. Suggest repeat specimen if clinically indicated. 08/24/2024 10:13 AM EDT [facility] Urine Urine specimen obtained by clean catch procedure / Unknown Non-blood Collection / Unknown 08/22/2024 6:23 PM EDT 08/22/2024 6:41 PM EDT Yesy GILL LAB MICROBIOLOGY - GEN ERAL ORDERABLES Final Result Performing Organization Address City/[facility]/ZIP Co de Phone Number [facility] [address] [place] [address], [place] [phone] * Blood Culture, Peripheral #1 (08/22/2024 5:22 PM EDT) Only the most recent of2 resultswithin the time period is included. Culture, Blood No growth at 5 days 08/27/2024 6:01 PM EDT [facility] Blood Venous blood specimen / Unknown Venipuncture / Unknown 08/22/2024 5:22 PM EDT 08/22/2024 5:40 PM EDT Yesy GILL LAB MICROBIOLOGY - GEN ERAL ORDERABLES Final Result Performing Organization Address [facility]/ZIP Co de Phone Number [facility] [address] [place] [address], [place] [phone] * Lactate, with reflex (08/22/2024 5:15 PM EDT) LACTIC ACID 1.6 0.4 - 2.0 mmol/L LAB CHEMISTRY METHOD 08/22/2024 6:12 PM EDT [facility] Blood Venous blood specimen / Unknown Venipuncture / Unknown 08/22/2024 5:15 PM EDT 08/22/2024 5:40 PM EDT Yesy GILL LAB BLOOD ORDERABLES F inal Result Performing Organization Address City/[facility]/ZIP Co de Phone Number [facility] [address] [place] [address], [place] [phone] * ECG 12 lead (08/22/2024 4:10 PM EDT) Only the most recent of2 resultswithin the time period is included. Ventricular Rate ECG 64 BPM GEMUSE Atrial Rate 64 BPM GEMUSE P-R Interval 268 ms GEMUSE QRS Duration 98 ms GEMUSE Q-T Interval 426 ms GEMUSE QTc 439 ms GEMUSE P Wave Mcintosh 78 degrees GEMUSE R Mcintosh 46 degrees GEMUSE T Mcintosh -88 degrees GEMUSE ECG Interpretation probably atrial fibrillation ST and T wave abnormality, consider inferolateral ischemia Abnormal ECG When compared with ECG of 16-JUL-2024 14:24, ST-t wave abnormalities are more obvious Confirmed by Caitlyn TAFOYA YUFENG ([id number]) on 08/22/2024 6:07:36 PM GEMUSE 08/22/2024 4:10 PM EDT 08/22/2024 6:07 PM EDT Magan Farias MD ECG ORDERABLES Final Result GEMUSE * (ABNORMAL) Prothrombin time with INR (08/22/2024 2:29 PM EDT) Protime 18.5(H) 10.6 - 13.9 sec LAB COAGULATION METHOD 08/22/2024 3:15 PM EDT [facility] INR 1.5 LAB COAGULATION METHOD 08/22/2024 3:15 PM EDT [facility] Blood Venous blood specimen / Unknown Venipuncture / Unknown 08/22/2024 2:29 PM EDT 08/22/2024 2:36 PM EDT Magan Farias MD LAB BLOOD ORDERABLES Final Resu lt [facility] [address] [place] [address], [place] [phone] * Sedimentation rate (08/22/2024 2:26 PM EDT) [facility] Sed Rate 19 0 - 20 mm/hr LAB HEMETOLOGY METHOD 08/23/2024 8:03 AM EDT [facility] Blood Venous blood specimen / Unknown Venipuncture / Unknown 08/22/2024 2:26 PM EDT 08/22/2024 2:37 PM EDT Lazara GILL LAB BLOOD ORDERABLES Final Result Performing Organization Address [facility]/ZIP Co de Phone Number [facility] [address] [place] [address], [place] [phone] * Lipase (08/22/2024 2:26 PM EDT) [facility] Lipase 22 13 - 75 unit/L LAB CHEMISTRY METHOD 08/22/2024 7:49 PM EDT [facility] Blood Venous blood specimen / Unknown Venipuncture / Unknown 08/22/2024 2:26 PM EDT 08/22/2024 2:36 PM EDT Taylor GILL LAB BLOOD ORDERABLES Final Resu lt Performing Organization Address [facility]/ZIP Co de Phone Number [facility] [address] [place] [address], [place] [phone] * Hemoglobin A1c (08/22/2024 2:26 PM EDT) [facility] Hemoglobin A1C 6.1 <6.5 % LAB CHEMISTRY METHOD 08/23/2024 2:31 PM EDT [facility] Mean Bld Glu Estim. 128 mg/dL LAB CHEMISTRY METHOD 08/23/2024 2:31 PM EDT [facility] Blood Venous blood specimen / Unknown Venipuncture / Unknown 08/22/2024 2:26 PM EDT 08/22/2024 2:37 PM EDT us Lazara GILL LAB BLOOD ORDERABLES Final Result Performing Organization Address City/[facility]/ZIP Co de Phone Number [facility] [address] [place] [address], [place] [phone] * Hepatic function panel (08/22/2024 2:26 PM EDT) Total Protein 7.3 6.0 - 8.0 g/dL LAB CHEMISTRY METHOD 08/22/2024 7:54 PM EDT [facility] Albumin 4.0 3.2 - 5.0 g/dL LAB CHEMISTRY METHOD 08/22/2024 7:54 PM EDT [facility] Total Bilirubin 1.0 0.0 - 1.4 mg/dL LAB CHEMISTRY METHOD 08/22/2024 7:54 PM EDT [facility] Bilirubin, Direct 0.3 0.0 - 0.3 mg/dL LAB CHEMISTRY METHOD 08/22/2024 7:54 PM EDT [facility] Bilirubin, Indirect 0.7 0.0 - 1.1 mg/dL LAB CHEMISTRY METHOD 08/22/2024 7:54 PM EDT [facility] ALT (SGPT) 32 10 - 60 unit/L LAB CHEMISTRY METHOD 08/22/2024 7:54 PM EDT [facility] AST (SGOT) 25 10 - 42 unit/L LAB CHEMISTRY METHOD 08/22/2024 7:54 PM EDT [facility] Alkaline Phosphatase 81 42 - 121 unit/L LAB CHEMISTRY METHOD 08/22/2024 7:54 PM EDT [facility] Blood Venous blood specimen / Unknown Venipuncture / Unknown 08/22/2024 2:26 PM EDT 08/22/2024 2:36 PM EDT us Taylor GILL LAB BLOOD ORDERABLES Final Resu lt [facility] [address] [place] [address], from Last 3 Months Insurance [employer] Advance Directives Documents on File 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 Do not modify or discontinue any currently active code status orders. * Full Code - Default Date Activated Date Inactivated Comments 08/23/2024 6:17 AM 08/27/2024 7:21 PM This is order is used when code status has not been discussed with the patient, or code status is otherwise unknown/unconfirmed To update the patient's code status, place a code status order. Do not modify or discontinue any currently active code status orders. Care Teams Clinical Educator Relationship Specialty Start Date End Date Orlando Maldonado MD [address] [place] [id number] PCP - General Internal Medicine 08/14/18
--- OUTSIDE RECORDS SUMMARY | 2024-09-12 13:11 | XMS_ITS ---
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 Name Role Phone Lilaine López Unavailable Unavailable Girish, Liliane Unavailable Unavailable Nicolás, Emily Unavailable Unavailable Maria C, May Unavailable UnavailAlayna Diaz Unavailable Unavailable Rajan, Eladia Unavailable Unavailable Lord, Nilam Unavailable Unavailable Keshawn, Marvin Unavailable Unavailable Mark, Jooyun Unavailable Unavailable Hernan Pedroza Unavailable Unavailable Elmira, Sandy Unavailable Unavailable Grippin, Nydia Unavailable Unavailable Levheim, Phuong Unavailable Unavailable Saab-Kierdillana, Estela Unavailable Unava ilable Tatiana Reilly Unavailable Unavailable Allergies and adverse reactions Code CodeSystem Substance Reaction Severity StartDate Concern Status GLP-1 receptor agonists Severe 12/25/19 23 active Care Team Name Role Address Phone Organization Dates Hernan Pedroza PCP [address] [place] [address] [address], [place], [address], [place] (Office): : : [facility] 03/14/2023 - 03/31/2023 Liliane López [address] [place] [address] [address], [place], [address], [place] (Office): : [facility] 03/14/2023 - 03/31/2023 Lilianeerik Stout [address] [place] [address] [address], [place], [address], [place] (Office): : [facility] 03/14/2023 - 03/31/2023 Emily Monzon [address] [place] [address], [address], [facility] (Office): : [facility] 03/14/2023 - 03/31/2023May Maria C [address] [place] [address], [place], [address], [place] (Office): : [facility] 03/14/2023 - 03/31/2023 Alayna Diez [address] [place], [address], [place] (Office): : [facility] 03/14/2023 - 03/31/2023 Eladia Rajan [address] [place] [address] [address], [place], [address], [place] (Office): [facility] 03/14/2023 - 03/31/2023 Nilam Mancilla [address] [place] [address] [address], [place], [address], [place] (Office): : [facility] 03/14/2023 - 03/31/2023 Marvin Liao [address] [place], [address], [place] (Office): : [facility] 03/14/2023 - 03/31/2023 Dante Mark [address] [place] [address] [address], [place], [address], [place] (Office): : [facility] 03/14/2023 - 03/31/2023 Sandy Constantine [address], [address], [facility] (Office): : [facility] 03/14/2023 - 03/31/2023 Nydia Homero [address] [place] [address], [address], [facility] (Office): : [facility] 03/14/2023 - 03/31/2023 Phuong Salazar [address] [place] [address], [address], [facility] (Office): : [facility] 03/14/2023 - 03/31/2023 Estela Gallagher [address] [address], [place], [address], [facility] (Office): : [facility] 03/14/2023 - 03/31/2023 Tatiana Tommie [address] [place] [address], [address], [facility] (Office): : [facility] 03/14/2023 - 03/31/2023 Immunizations Immunization Status Vaccine Details Vaccine Code CodeSystem Jg e Notes Influenza completed Influenza, split virus, trivalent, injectable, contains preservative 141 CVX created date: 12/30/2022 administere d date: 11/29/2022 TB 1 Step Mantoux (PPD) completed tuberculin skin test; unspecified formulation lotNumber: [id number] expiry: 11/27/2025 Mfg: Sanof Pasteur Given 0.1 ml Left Forearm intradermally 98 CVX created date: 12/25/2022 consent date: 12/25/2022 administere d date: 12/25/2022 TB 2 Step Mantoux Skin Test completed tuberculin skin test; unspecified formulation lotNumber: [id number] expiry: 01/27/2026 Mfg: Arina Pasteur Given 0.1 ml Left Forearm intradermally Step 1 of Multi-step 98 CVX created date: 01/03/2023 consent date: 01/02/2023 administere d date: 01/03/2023 SARS-COV-2 (COVID-19) completed SARS-COV-2 (COVID-19) vaccine, mRNA, spike protein, LNP, preservative free, 100 mcg/0.5mL dose or 50 mcg/0.25mL dose Mfg: Moderna Step 2 of Multi-step with next step required 207 CVX created date: 12/30/2022 administere d date: 04/27/2020 SARS-COV-2 (COVID-19) completed SARS-COV-2 (COVID-19) vaccine, mRNA, spike protein, LNP, preservative free, 100 mcg/0.5mL dose or 50 mcg/0.25mL dose Mfg: Moderna Step 1 of Multi-step with next step required 207 CVX created date: 12/30/2022 administere d date: 03/30/2020 SARS-COV-2 (COVID-19 BOOSTER) completed SARS-COV-2 (COVID-19) vaccine, mRNA, spike protein, LNP, preservative free, 100 mcg/0.5mL dose or 50 mcg/0.25mL dose Mfg: Moderna 207 CVX created date: 12/30/2022 administere d date: 10/07/2021 SARS-COV-2 (COVID-19 BOOSTER) completed SARS-COV-2 (COVID-19) vaccine, mRNA, spike protein, LNP, preservative free, 100 mcg/0.5mL dose or 50 mcg/0.25mL dose Mfg: Moderna 207 CVX created date: 12/30/2022 administere d date: 12/18/2020 Mental Status Section Date Assessment Total Score Description 03/31/2023 BIMS 15 cognitively int act CAM 0 No delirium ind icated PHQ-9 00 03/20/2023 BIMS 15 cognitively int act CAM 0 No delirium ind icated PHQ-9 00 Problems Problem # Description Date of onset Resolved Date Code CodeSystem Concern Status 1 NEED FOR ASSISTANCE WITH PERSONAL CARE 03/20/[id number] active 2 OTHER SYMPTOMS AND SIGNS INVOLVING COGNITIVE FUNCTIONS AND AWARENESS 03/20/[address] active 3 UNSTEADINESS ON FEET 03/20/[address] active 4 ACQUIRED ABSENCE OF LUNG [PART OF] 03/14/[address] active 5 BENIGN PROSTATIC HYPERPLASIA WITHOUT LOWER URINARY TRACT SYMPTOMS 03/14/[address] active 6 DIFFICULTY IN WALKING, NOT ELSEWHERE CLASSIFIED 03/14/[address] active 7 ESSENTIAL (PRIMARY) HYPERTENSION 03/14/[address] active 8 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 03/14/[address] active 9 HYPERLIPIDEMIA, UNSPECIFIED 03/14/[address] active 10 IRON DEFICIENCY ANEMIA, UNSPECIFIED 03/14/[address] active 11 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 03/14/[address] active 12 MALIGNANT NEOPLASM OF UPPER LOBE, LEFT BRONCHUS OR LUNG 03/14/[address] active 13 MUSCLE WEAKNESS (GENERALIZED) 03/14/[address] active 14 PARKINSONISM, UNSPECIFIED 03/14/[address] active 15 PAROXYSMAL ATRIAL FIBRILLATION 03/14/[address] active 16 UNSPECIFIED ATRIAL FIBRILLATION 03/14/[address] active 17 URINARY TRACT INFECTION, SITE NOT SPECIFIED 03/14/[address] active 18 WEAKNESS 03/14/[address] active 19 PAIN IN OTHER SPECIFIED JOINT 12/26/19 23 03/14/[address] completed 20 ACUTE CYSTITIS WITHOUT HEMATURIA 12/25/19 23 03/13/[address] completed 21 ANEMIA DUE TO OTHER DISORDERS OF GLUTATHIONE METABOLISM 12/25/19 23 03/13/[address] completed 22 BENIGN PROSTATIC HYPERPLASIA WITH LOWER URINARY TRACT SYMPTOMS 12/25/19 23 03/13/[address] completed 23 HYPERLIPIDEMIA, UNSPECIFIED 12/25/1903/13/[address] completed 24 MALIGNANT NEOPLASM OF THYROID GLAND 12/25/1903/13/[address] completed 25 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 12/25/1903/13/[address] completed 26 ORTHOSTATIC HYPOTENSION 12/25/1903/13/[address] completed 27 OTHER THROMBOPHILIA 12/25/1903/13/[address] completed 28 UNSPECIFIED ATRIAL FIBRILLATION 12/25/1903/13/[address] completed 29 URINARY TRACT INFECTION, SITE NOT SPECIFIED 12/25/1903/13/[address] completed 30 WEAKNESS 12/25/1903/13/[address] completed 31 DIFFICULTY IN WALKING, NOT ELSEWHERE CLASSIFIED 12/23/1903/13/[address] completed 32 MUSCLE WEAKNESS (GENERALIZED) 12/23/1903/13/[address] completed 33 NEED FOR ASSISTANCE WITH PERSONAL CARE 12/23/1903/13/[address] completed 34 UNSTEADINESS ON FEET 12/23/1903/13/[address] completed Reason for Referral No Reasons for Referral Entered Social History Social History Observation Description Start Date End Date Code Code System Current Smoking Status Tobacco smoking consumption unknown 447047145 SNOMED CT Sex Assigned At Male 1940 83186-2 [facility] Gender Identity Vital Signs Code Code System Vitals Name Values and Units Timing Information 47687-3 [facility] Pain Level Value=0.0 03/31/2023 9279-1 [facility] Respiratory Rate Value=16.0 Units=/m in 03/31/2023 8462-4 [facility] Blood Pressure-Diastolic Value=78 Un its=mmHg 03/31/2023 8480-6 [facility] Blood Pressure-Systolic Mahqj=977 Un its=mmHg 03/31/2023 8310-5 [facility] Body Temperature Value=97.6 Units= F 03/31/2023 8867-4 [facility] Heart rate Value=70.0 Units=/min 03/2023 17041-2 [facility] O2 % BldC Oximetry Value=97.0 Units= % 03/31/2023 69627-6 [facility] Weight Uthce=019.6 Units=Lbs 02/2023 8302-2 [facility] Height Value=72.0 Units=Inches 12/27/2022
--- OUTSIDE RECORDS SUMMARY | 2024-09-12 13:11 | XMS_ITS | Clinical Summary ---
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 Name Role Phone Orlando Maldonado MD Primary Care Provider [phone] Allergies No known active allergies Medications Medication [...] 92 04/15/2019 9:06 AM EST Temperature 36.8 C (98.3 F) 04/15/2019 9:06 AM EST Respiratory Rate - - Oxygen Saturation - [...] 1-dose 75+ series) 2017 Influenza Vaccine (#1) 2024 Hepatitis B Vaccines Aged Out No long er eligible based on patient's age to complete this topic RSV Ped < 20 months Aged Out No longe r eligible based on patient's age to complete this topic Care Teams Heavy Equipment Rental Associate Relationship Specialty Start Date End Date Orlando Maldonado MD [address] [facility], [place] [address] PCP - General Internal Medicine 03/11/19
== END 2024-09-12 13:33 | disposition home or self-care (01) ==
LOC: HO.HSMS 12:46
PROVIDERS: PCP Internal Medicine; Visit Provider Psychiatry & Neurology Neurology
DX: G20.A1 Parkinson's disease without dyskinesia, without mention of fluctuations (principal); I63.532 Cerebral infarction due to unspecified occlusion or stenosis of left posterior cerebral artery
CPT/HCPCS: 99214; G2211